=== PATIENT | male | born 1945 | race Caucasian/White ===

== ENCOUNTER 2019-03-27 11:42 | Outpatient (CLI) | payer MEDICARE ==
--- NOTE | 2019-03-27 12:13 | RAD ---
FIVE VIEWS CERVICAL SPINE: HISTORY: Cervical spondylosis. Several years of neck pain. FINDINGS: On the open-mouth projection, lateral masses of C1 and C2 articulate appropriately. The tip of the od ontoid process is obscured In the AP projection, multilevel facet arthropathy. There is extensive atherosclerosis in both cervic al carotid arteries. There is no prevertebral soft tissue swelling. Predental space is normal. The neutral position, there is 2.5 mm of anterolisthesis of C3 upon C4. Upon flexion there is 3.6 mm of anterolisthesis of C3 upon C4. Upon extension there is 2.7 mm of anterolisthesis of C3 upon C4. Mild loss of disc space height and osteophyte formation at C4-C5 and C6-C7. Moderate degenerative dis c disease with loss of disc space height and osteophyte formation at C5-C6. IMPRESSION: Multilevel degenerative changes of the cervical spine. Barring any contraindications, further evaluat ion with cervical spine MRI. Transcribed Date/Time: 03/27/2019 1:04 PM
--- NOTE | 2019-03-27 12:18 | RAD ---
FOUR VIEWS LUMBAR SPINE: HISTORY: Lifelong lower back pain. COMPARISON: None. FINDINGS: Five lumbar-type vertebrae. Mild leftward curvature of the lumbar spine centered at the L3 level. Mul tilevel degenerative disc disease with loss of disc space height and osteophyte formation at the L1-L2, L2-L3 and L3-L4 levels. Straightening of normal lumbar lordosis is noted in the neutral positi on. Spondylolisthesis: L3-L4: neutral position demonstrates 2.2 mm of retrolisthesis of L3 upon L4. Upon flexion there is 2.4 mm of retrolisthesis of L3 upon L4. Upon extension there is 1.8 mm of retrolisthesis of L3 upon L4. There is evidence of vacuum disc phenomenon at the L3-L4 level. Mild hypertrophic changes of the facets are noted at L2-L3, L3-L4, L4-L5. Visualized sacrum and bony pelvis are unremarkable. IMPRESSION: Degenerative changes of the lumbar spine and spondylolisthesis as above. Transcribed Date/Time: 03/27/2019 1:01 PM
== END 2019-03-27 11:43 | disposition home or self-care (01) ==
LOC: BICRAD 11:42
PROVIDERS: ATTEND Neurological Surgery
DX: M47.816 Spondylosis without myelopathy or radiculopathy, lumbar region (principal); M47.12 Other spondylosis with myelopathy, cervical region; M43.16 Spondylolisthesis, lumbar region
CPT/HCPCS: 72050; 72120

== ENCOUNTER 2019-04-10 12:25 | Outpatient (CLI) | payer MEDICARE ==
--- NOTE | 2019-04-10 14:44 | MRI ---
MRI cervical spine noncontrast: DATE: 04/10/2019 HISTORY: 73-year-old male with ICD-10: "M 47.12, cervical spondylosis with myelopathy" COMPARISON: None FINDINGS: Mild reversal of curvature. Vertebral body heights are maintained. Diffusely heterogeneous bone marro w signal consistent with senescent marrow changes. No bone marrow edema. Cervical spinal cord is normal in size and signal. C1-2: No central stenosis. C2-3: Disc space maintained. No high-grade central or high-grade neural foraminal stenosis. Ankylosis across bilateral facet joints. C3-4: Severe bilateral facet DJD causes mild grade 1 anterolisthesis of C3 on C4. Disc space maintain ed. Mild disc-osteophytic bar complex indents the ventral aspect of thecal sac. Mild central spinal canal stenosis. Small bilateral uncinate process osteophytes. Severe right neural foraminal stenosis. Moderate left neural foraminal stenosis. C4-5: Moderate disc space narrowing. Moderate right facet DJD. Moderate to severe left facet DJD. Min imal grade 1 anterolisthesis of C4 on C5. Moderate disc space narrowing. Shallow broad-based disc-osteophytic bar complex. Mild central spinal canal stenosis. Severe bilateral neural foraminal s tenosis. C5-6: Moderate disc space narrowing. Slight retrolisthesis of C5 on C6. Broad-based disc-osteophytic bar complex mildly indents the ventral surface of spinal cord. Superimposed right paracentral focal small disc herniation or focal disc-osteophyte complex further indents the right ventral surface of t he spinal cord. Mild ligamentum flavum thickening. Severe central spinal canal stenosis. Moderate size bilateral uncinate process osteophytes. Severe bilateral neural foraminal stenosis. Mild to mode rate bilateral facet DJD. C6-7: Moderate disc space narrowing. Slight retrolisthesis of C6 on C7. Broad-based disc-osteophytic bar complex abuts the ventral surface of spinal cord. Thickened ligamentum flavum abuts the dorsal surface of spinal cord superior to this level. C7-T1: Bilateral moderate to severe facet DJD. Bilateral moderate to severe neural foraminal stenosis . No high-grade central spinal canal stenosis. Minimal anterolisthesis of C7 on T1. Mild disc space narrowing. IMPRESSION: 1. High-grade Cervical spondylosis with moderate degenerative disc disease at several levels, and mul tilevel bilateral moderate and severe facet osteoarthrosis. 2. Multilevel severe bilateral neural foraminal stenosis. 3. High-grade central spinal canal stenosis at C5-6 and C6-7.
== END 2019-04-10 12:26 | disposition home or self-care (01) ==
LOC: BICMRI 12:25
PROVIDERS: ATTEND Neurological Surgery
DX: M47.12 Other spondylosis with myelopathy, cervical region (principal); M50.021 Cervical disc disorder at C4-C5 level with myelopathy; M50.03 Cervical disc disorder with myelopathy, cervicothoracic region; M48.02 Spinal stenosis, cervical region
CPT/HCPCS: 72141

== ENCOUNTER 2019-04-26 11:31 | Outpatient (CLI) | payer MEDICARE | END 2019-04-26 11:32 | disposition home or self-care (01) | LOC: ULT 11:31 | PROVIDERS: ATTEND Internal Medicine Cardiovascular Disease | DX: Z01.810 Encounter for preprocedural cardiovascular examination (principal); R06.09 Other forms of dyspnea | CPT/HCPCS: 93306 ==

== ENCOUNTER 2019-06-18 07:28 | Outpatient (CLI) | payer MEDICARE ==
--- NOTE | 2019-06-18 09:10 | CT ---
CT ANGIOGRMA NECK: DATE: 06/18/2019. COMPARISON: None. HISTORY: Evaluate for carotid arterial stenosis, dizziness. TECHNIQUE: Axial CT imaging at 2 mm intervals from the skull base through the lung apices with intravenous contr ast using CT angiogram protocol. Coronal and sagittal 3D reformatted imaging obtained. FINDINGS: There are prominent centrilobular and paraseptal emphysematous changes within the lung apices. The retroantral fat and the parapharyngeal fat appears clear bilaterally. The parotid glands and submandibular glands appear grossly unremarkable. The hyoid bone, thyroid car tilage, cricoid cartilage, level of glottis, and thyroid gland appear grossly unremarkable. No lymphadenopathy is evident within the neck. The origin of the innominate artery, left common carotid artery, left subclavian artery, right subcla vian artery, and right common carotid artery demonstrate no hemodynamically significant stenosis on t he basis of NASCET criteria. There is atherosclerotic calcification at the origin of bilateral subcl trell arteries. The proximal aspect of bilateral common carotid arteries demonstrates tortuosity. There is prominent partially calcified atherosclerotic plaque involving the proximal left internal ca rotid artery, involving the proximal 2.7 cm of the left ICA. There is associated stenosis of the pro ximal left ICA, with the arterial lumen narrowed to 2-3 mm in AP dimension. On the basis of NASCET c riteria, the degree of stenosis involving the proximal left internal carotid artery measures in the 8 0% range. On the basis of NASCET criteria, there is no hemodynamically significant stenosis involving the right common carotid artery. On the basis of partially calcified atherosclerotic plaque, there is stenosi s at the origin of the right internal carotid artery which is estimated in the 60% range. The left vertebral artery is patent and dominant. The right vertebral artery is diminutive and appears to end in PICA. Review of the osseous structures demonstrates prominent cervical spine degenerative change. There is anterolisthesis at C3-4 measuring 4 mm. There is multilevel disk space narrowing with degenerative end plate change within the mid and lower cervical spine, most prominent at C5-6, C6-7, and C7-T1. P rominent multilevel bilateral facet and uncovertebral osteophyte formation noted. No worrisome lytic or blastic bone lesion. IMPRESSION: Hemodynamically significant stenosis is noted at the origin of bilateral internal carotid arteries, l eft greater than right as detailed above. Numerous additional incidental findings. POS: ANGELA
[2019-06-18] MEDS ORDERED: Iopamidol 370 76% 100 ML VIAL ONE (10:40)
== END 2019-06-18 07:29 | disposition home or self-care (01) ==
LOC: BICCT 07:28
PROVIDERS: ATTEND Physician Assistant
DX: I65.23 Occlusion and stenosis of bilateral carotid arteries (principal)
CPT/HCPCS: 36415; 70498; 80053; 80061; 82565; 85025

== ENCOUNTER 2019-07-08 05:43 | Outpatient (CLI) | payer MEDICARE, OTHER ==
[2019-07-08 11:07] LABS: Hemoglobin 14.5 g/dL (14.0-18.0); Mean Corpuscular Hemoglobin 30.1 pg (27.0-31.0); Mean Corpuscular Volume 91.2 fL (78.0-98.0); Mean Platelet Volume 7.7 fL (7.4-10.4); Platelet Count 211 thou/uL (130-400); RBC Distribution Width 12.9 % (11.5-14.5); Red Blood Cell (RBC) Count 4.81 mill/uL (4.70-6.10); White Blood Cell (WBC) Count 9.6 thou/uL (4.8-10.8)
[2019-07-08 11:27] LABS: Anion Gap 12 mmol/L (10-20); BUN (Urea Nitrogen) 16 mg/dL (8.4-25.7); Calc. Creatinine Clearance 0 mL/min (70-130); Calcium 9.5 mg/dL (7.8-10.44); Carbon Dioxide 26 mmol/L (23-31); Chloride 107 mmol/L (98-107); Estimated GFR-MDRD 75; Glucose 119 mg/dL (83-110); Potassium 4.4 mmol/L (3.5-5.1); Sodium 141 mmol/L (136-145)
== END 2019-07-08 05:44 | disposition home or self-care (01) ==
LOC: LABBT 05:43
PROVIDERS: ATTEND Thoracic Surgery (Cardiothoracic Vascular Surgery)
DX: Z01.812 Encounter for preprocedural laboratory examination (principal); I65.29 Occlusion and stenosis of unspecified carotid artery
CPT/HCPCS: 80048; 85027

== ENCOUNTER 2019-07-08 09:30 | Inpatient (IN) | payer MEDICARE ==
[2019-07-09] MEDS ORDERED: Midazolam HCl 2 mg/2 ml Vial ONE (07:57)
[2019-07-09] MEDS ORDERED: Heparin 5,000 UNITS/ML VIAL ONE (08:15)
[2019-07-09] MEDS ORDERED: Protamine Sulfate 50 MG/5 ML VIAL ONE (08:15)
[2019-07-09] MEDS ORDERED: Fentanyl 100 MCG/2 ML VIAL ONE (08:26)
[2019-07-09] MEDS ORDERED: Bupivacaine PF 0.5% 30 ML VIAL ONE (09:03)
[2019-07-09] MEDS ORDERED: Lidocaine 1% w/Epinephrine 1:100K 20 ML VIAL ONE (09:03)
[2019-07-09] MEDS ORDERED: Rocuronium Bromide 10 MG/ML (10ML VIAL) ONE (09:59)
[2019-07-09] MEDS ORDERED: Glycopyrrolate 0.2 MG/ML 5 ML SYRINGE ONE (09:59)
[2019-07-09] MEDS ORDERED: PROPOFOL 200 MG/20 ML VIAL ONE (09:59)
--- NOTE | 2019-07-09 10:44 | OP ---
DATE OF PROCEDURE: 07/09/2019 PREOPERATIVE DIAGNOSIS: Asymptomatic left carotid stenosis. POSTOPERATIVE DIAGNOSIS: Asymptomatic left carotid stenosis. PROCEDURE PERFORMED: Left carotid endarterectomy. ANESTHESIA: General endotracheal. ANESTHESIOLOGIST: Varinedr Pearson MD ESTIMATED BLOOD LOSS: Minimal. DRAINS: None. SPECIMENS: None. DESCRIPTION OF PROCEDURE: After consent was obtained, the patient was brought to the operating room, placed in supine position on the operating table. Appropriate central line and monitors were placed and general endotracheal anesthesia was induced. Head was rotated to the right. Joints were appropriately supported and neck was then prepped and draped in usual sterile fashion. A skin incision was made along the anterior border of the sternocleidomastoid. Platysma was incised with electrocautery. Sternocleidomastoid was mobilized posteriorly. The carotid sheath was entered. A large facial vein branch was divided between ties and clips. Common internal and external carotid arteries were carefully exposed. The internal carotid artery plaque extended above where the hypoglossal nerve crossed. Hypoglossal nerve was then mobilized posteriorly to allow for access to the internal carotid artery. Vagus nerve was noted and protected. The patient was systemically heparinized. After 3 minutes, internal, common, and external carotid arteries were clamped serially. Incision was made on the common carotid artery extended through the bulb distal to the plaque. Endarterectomy was then performed removing a large bulky plaque from the internal carotid artery. A 12-Danish Pender shunt was then placed and antegrade flow re-established. Medial fibers were debrided. The internal carotid artery was approximately 1 cm in diameter. Therefore, patch angioplasty was not performed. Carotid incision was reapproximated with a running 6-0 Prolene suture. Prior to completion of suture line, shunt was clamped and removed. Arteries were all back bled and flushed with heparinized saline. After completion of the suture line, the carotid itself was de-aired. The suture line was tied. Antegrade flow was re-established up the external carotid artery. 10 seconds later antegrade flow was re-established up the internal carotid artery. 50 mg of protamine was administered. Hemostasis was ensured. Wounds were copiously irrigated and closed in layers and Dermabond applied to skin. A dena-incisional block was performed with 0.5% Marcaine mixed with 1% lidocaine with epinephrine. The patient was awakened and neurologically intact at completion. Needle, sponge, and instrument counts were all reported as correct at the end of the procedure. The patient was transported to the recovery area in stable condition. Job ID: [id number]
[2019-07-09] MEDS ORDERED: Promethazine HCl 25 MG/ML VIAL IM PRN (11:25)
[2019-07-09] MEDS ORDERED: hydrALAZINE 20 MG/ML VIAL SLOW IVP PRN (11:25)
[2019-07-09] MEDS ORDERED: traMADol HCl 50 MG TAB PO PRN (11:25)
[2019-07-09] MEDS ORDERED: Fentanyl 100 MCG/2 ML VIAL SLOW IVP PRN (11:25)
[2019-07-09] MEDS ORDERED: Phenylephrine 10 MG/NS 250 ML 250 ML IVPB PRN (11:25)
[2019-07-09] MEDS ORDERED: Nitroglycerin 50 MG/250 ML BOT 250 ML IVPB PRN (11:25)
[2019-07-09] MEDS ORDERED: Ondansetron PF 4 MG/2 ML Vial IVP PRN (11:25)
[2019-07-09 11:48] VITALS: BMI 27.0
[2019-07-09] MEDS: CEFAZOLIN 2 GM in Premix Bag 1 BAG IVPB SCH ×2 (15:58→23:46)
[2019-07-09] MEDS: Sodium Chloride 0.9% 1,000 ML IV SCH (20:55)
[2019-07-09] MEDS: Fluticasone Propionate Nasal Spray 16 gm Bottle NASAL SCH (20:59)
[2019-07-09] MEDS: Acyclovir 200 mg Capsule PO SCH (20:59)
[2019-07-09] MEDS ORDERED: Ezetimibe 10 MG TAB PO SCH (21:00)
[2019-07-09] MEDS ORDERED: Montelukast Sodium 10 mg Tablet PO SCH (21:00)
[2019-07-09] MEDS ORDERED: Atorvastatin Calcium 40 MG TAB PO SCH (21:00)
[2019-07-10 00:13] VITALS: BP 143/88
[2019-07-10] MEDS: Sodium Chloride 0.9% 1,000 ML IV SCH (05:24)
--- NOTE | 2019-07-10 06:23 | DIS ---
DATE OF ADMISSION: 07/09/2019 DATE OF DISCHARGE: 07/10/2019 DIAGNOSIS: Asymptomatic bilateral carotid stenosis. PROCEDURE: Left carotid endarterectomy. DESCRIPTION OF HOSPITAL STAY: Mr. Wright was admitted for elective carotid endarterectomy. He has done well and being discharged to home in good condition. DISCHARGE MEDICATIONS: Unchanged. He is to resume his Xarelto tomorrow morning. FOLLOWUP: Follow up with me in 2 weeks. Job ID: [id number]
[2019-07-10] MEDS: CEFAZOLIN 2 GM in Premix Bag 1 BAG IVPB SCH (07:25)
[2019-07-10] MEDS: Fluticasone Propionate Nasal Spray 16 gm Bottle NASAL SCH (07:27)
[2019-07-10] MEDS: Acyclovir 200 mg Capsule PO SCH (07:28)
[2019-07-10] MEDS ORDERED: Furosemide 40 MG TAB PO SCH (09:00)
[2019-07-10] MEDS ORDERED: Acetaminophen 500 MG TAB PO PRN (09:00)
[2019-07-10] MEDS ORDERED: Aspirin 81 mg Enteric Coated Tablet PO SCH (09:00)
[2019-07-10 09:23] VITALS: TEMP 98.4
== END 2019-07-10 09:10 | disposition home or self-care (01) | DRG 39 ==
LOC: SURG A 07-09 06:24 → CCU 07-09 10:30
PROVIDERS: ADMIT Thoracic Surgery (Cardiothoracic Vascular Surgery); ATTEND Thoracic Surgery (Cardiothoracic Vascular Surgery)
PROC: 03CL0ZZ Extirpation of Matter from Left Internal Carotid Artery, Open Approach (ICD-10-PCS; principal; 2019-07-09)
DX: I65.23 Occlusion and stenosis of bilateral carotid arteries (principal); I10 Essential (primary) hypertension; E78.5 Hyperlipidemia, unspecified; G89.29 Other chronic pain; I25.10 Atherosclerotic heart disease of native coronary artery without angina pectoris; J30.2 Other seasonal allergic rhinitis; M19.90 Unspecified osteoarthritis, unspecified site; Z79.01 Long term (current) use of anticoagulants; Z90.49 Acquired absence of other specified parts of digestive tract; Z98.42 Cataract extraction status, left eye; Z98.41 Cataract extraction status, right eye; Z87.891 Personal history of nicotine dependence; Z87.01 Personal history of pneumonia (recurrent)
CPT/HCPCS: 80048; 85027; 94640; J0360; J0690; J1642; J1644; J2250; J2704; J2720; J3010; J7620; S0020

== ENCOUNTER 2019-07-10 13:46 | Emergency (ER) | payer MEDICARE ==
[2019-07-10 14:20] LABS: Bilirubin Negative (Negative); Blood, Urine Negative (Negative); Clarity Clear (Clear); Glucose, Urine (Dipstick) Normal (Negative); Leukocyte Negative Leu/uL (Negative); Nitrite Negative (Negative); Protein, Urine (Dipstick) Negative (Neg-Trace); Urobilinogen Normal mg/dL (Less than 2)
== END 2019-07-10 16:14 | disposition home or self-care (01) ==
LOC: ERS 13:46
DX: R33.9 Retention of urine, unspecified (principal); R30.0 Dysuria; R39.15 Urgency of urination; R35.0 Frequency of micturition; I49.9 Cardiac arrhythmia, unspecified; I48.91 Unspecified atrial fibrillation; Z87.891 Personal history of nicotine dependence
CPT/HCPCS: 51702; 81003; 87086

== ENCOUNTER 2019-08-06 10:44 | Outpatient (CLI) | payer MEDICARE, OTHER ==
[2019-08-06 13:58] LABS: Hemoglobin 14.6 g/dL (14.0-18.0); Mean Corpuscular HGB CONC 33.7 g/dL (32.0-36.0); Mean Corpuscular Volume 89.1 fL (78.0-98.0); Mean Platelet Volume 7.8 fL (7.4-10.4); Platelet Count 184 thou/uL (130-400); RBC Distribution Width 12.1 % (11.5-14.5); Red Blood Cell (RBC) Count 4.85 mill/uL (4.70-6.10); White Blood Cell (WBC) Count 7.1 thou/uL (4.8-10.8)
[2019-08-06 14:15] LABS: Anion Gap 13 mmol/L (10-20); BUN (Urea Nitrogen) 20 mg/dL (8.4-25.7); Calc. Creatinine Clearance 0 mL/min (70-130); Carbon Dioxide 28 mmol/L (23-31); Chloride 103 mmol/L (98-107); Estimated GFR-MDRD 71; Sodium 140 mmol/L (136-145)
[2019-08-06 14:16] LABS: Calcium 9.2 mg/dL (7.8-10.44); Glucose 103 mg/dL (83-110)
[2019-08-06 17:47] LABS: SARS-CoV-2 MS2 Positive; SARS-CoV-2 N Gene Negative; SARS-CoV-2 S Gene Negative; SARS-CoV-2 orf1ab Negative
== END 2019-08-06 10:45 | disposition home or self-care (01) ==
LOC: LABBT 10:44
PROVIDERS: ATTEND Thoracic Surgery (Cardiothoracic Vascular Surgery)
DX: Z01.812 Encounter for preprocedural laboratory examination (principal); Z11.59 Encounter for screening for other viral diseases; I65.21 Occlusion and stenosis of right carotid artery
CPT/HCPCS: 80048; 85027; U0003; 87635

== ENCOUNTER 2019-08-06 13:00 | Inpatient (IN) | payer MEDICARE, OTHER ==
[2019-08-08] MEDS ORDERED: Heparin 5,000 UNITS/ML VIAL ONE (11:00)
[2019-08-08] MEDS ORDERED: Protamine Sulfate 50 MG/5 ML VIAL ONE ×2 (11:00→14:01)
[2019-08-08] MEDS ORDERED: Fentanyl 100 MCG/2 ML VIAL ONE (11:57)
[2019-08-08] MEDS ORDERED: Midazolam HCl 2 mg/2 ml Vial ONE (11:57)
[2019-08-08] MEDS ORDERED: SUGAMMADEX SODIUM 200 MG/2 ML VIAL ONE (13:13)
[2019-08-08] MEDS ORDERED: PHENYLEPHRINE-NS 100 MCG/ML 10 ML SYRINGE ONE ×2 (13:47→14:39)
[2019-08-08] MEDS ORDERED: EPINEPHrine 1 MG/ML AMP ONE (14:10)
[2019-08-08] MEDS ORDERED: Bupivacaine PF 0.5% 30 ML VIAL ONE (14:10)
[2019-08-08] MEDS ORDERED: Glycopyrrolate 0.2 MG/ML 5 ML SYRINGE ONE (14:39)
[2019-08-08] MEDS ORDERED: Lidocaine 1% PF 5 ML VIAL ONE ×2 (14:39)
[2019-08-08] MEDS ORDERED: PROPOFOL 200 MG/20 ML VIAL ONE (14:39)
[2019-08-08] MEDS ORDERED: Vecuronium 10 MG VIAL ONE (14:39)
[2019-08-08] MEDS ORDERED: EPHEDRINE 25 MG/5 ML SYRINGE ONE (14:39)
[2019-08-08] MEDS ORDERED: Ondansetron HCl/PF 4 MG/2 ML Vial IVP PRN (14:42)
[2019-08-08] MEDS ORDERED: Promethazine HCl 25 MG/ML VIAL IM PRN (16:15)
[2019-08-08] MEDS ORDERED: Nitroglycerin 50 MG/250 ML BOT 250 ML IVPB PRN (16:15)
[2019-08-08] MEDS ORDERED: Ondansetron PF 4 MG/2 ML Vial IVP PRN (16:15)
[2019-08-08] MEDS ORDERED: Acetaminophen 500 MG TAB PO PRN (16:15)
[2019-08-08] MEDS ORDERED: hydrALAZINE 20 MG/ML VIAL SLOW IVP PRN (16:15)
[2019-08-08] MEDS ORDERED: Phenylephrine 10 MG/NS 250 ML 250 ML IVPB PRN (16:15)
[2019-08-08] MEDS ORDERED: Sodium Chloride 0.9% 1,000 ML IV SCH (16:15)
[2019-08-08 16:21] VITALS: BMI 27.1
[2019-08-08] MEDS ORDERED: Rivaroxaban 10 MG TAB PO SCH (17:00)
[2019-08-08] MEDS: CEFAZOLIN 2 GM in Premix Bag 1 BAG IVPB SCH (17:26)
[2019-08-08] MEDS: Acetaminophen 325 MG TAB PO PRN (18:33)
--- NOTE | 2019-08-08 19:54 | OP ---
DATE OF PROCEDURE: 08/08/2019 PREOPERATIVE DIAGNOSIS: Asymptomatic right carotid stenosis. POSTOPERATIVE DIAGNOSIS: Asymptomatic right carotid stenosis. PROCEDURES PERFORMED: 1. Transcarotid artery revascularization right carotid stenting. 2. Ultrasound-guided left femoral venous access. ANESTHESIA: General endotracheal. ANESTHESIOLOGIST: Bonny Kang MD ESTIMATED BLOOD LOSS: Less than 50. TOTAL CONTRAST: 25 mL. TOTAL FLUORO TIME: 5 minutes 4 seconds. TOTAL REVERSAL OF FLOW TIME: 14 minutes. DESCRIPTION OF PROCEDURE: After consent was obtained, the patient was brought to the operating room and placed in supine position on the operating table. Appropriate central line was placed. General endotracheal anesthesia was induced. Right neck and left groin were prepped and draped in usual sterile fashion. Using ultrasound guidance, the left femoral vein was accessed and the 8-Gu[place]ian TCAR femoral venous sheath was placed. A skin incision was made one fingerbreadth above the clavicle between the heads of the sternocleidomastoid. Sternocleidomastoid heads were split. The omohyoid was retracted superiorly. The common carotid artery was dissected free and controlled with an umbilical tape proximally. The patient was given 7500 units of heparin. A 5-0 Prolene pursestring suture was placed in the common carotid artery. Access to the carotid artery was obtained with micropuncture needle and wire. A micropuncture sheath was passed and hand-injected arteriogram performed. The carotid bifurcation was laid out with an MATA 20 angulation. After an ACT of greater than 250 was obtained, the micropuncture sheath was exchanged for the TCAR sheath. This was controlled at the level of the skin with a silk suture. The TCAR sheath and femoral venous sheaths were then connected with reversal of flow confirmed. The 0.014 wire and a 5 x 2 angioplasty balloon were then passed into the internal carotid artery. Balloon was inflated to 8 mmHg in two separate locations. Followup angiogram showed good result. The TCAR stent was a 9 x 4 stent that was then passed over the wire into the internal carotid artery just distal to the balloon angioplasty site. The stent was deployed and posted with a 5 x 2 balloon. Followup angiogram showed a good result with about 20% residual stenosis. Flow reversal was continued for a minute after the stent was placed. Wire was removed under fluoroscopic guidance. Flow reversal was terminated. Protamine was administered. Arterial sheath was removed and its pursestring suture secured. The venous sheath was removed and manual pressure held for hemostasis. After adequate hemostasis had been obtained, wounds were closed in layers and Dermabond applied to skin. The patient was awakened and neurologically intact at completion. Needle, sponge, and instrument counts were all reported as correct. The patient was transferred to the recovery room in stable condition. Job ID: [id number]
[2019-08-08] MEDS ORDERED: Ezetimibe 10 MG TAB PO SCH (21:00)
[2019-08-08] MEDS ORDERED: Atorvastatin Calcium 40 MG TAB PO SCH (21:00)
[2019-08-08] MEDS ORDERED: Fluticasone Propionate Nasal Spray 16 gm Bottle NASAL SCH (21:00)
[2019-08-08] MEDS ORDERED: Acyclovir 200 mg Capsule PO SCH (21:00)
[2019-08-08] MEDS ORDERED: Montelukast Sodium 10 mg Tablet PO SCH (21:00)
[2019-08-09] MEDS: CEFAZOLIN 2 GM in Premix Bag 1 BAG IVPB SCH (01:48)
[2019-08-09] MEDS: Acetaminophen 325 MG TAB PO PRN (03:02)
[2019-08-09 04:35] LABS: Hemoglobin 11.7 g/dL (14.0-18.0); Platelet Count 162 thou/uL (130-400)
[2019-08-09 04:52] LABS: Calc. Creatinine Clearance 106 mL/min (70-130); Estimated GFR-MDRD Greater than 90
[2019-08-09 08:02] VITALS: TEMP 98
--- NOTE | 2019-08-09 08:23 | DIS ---
DATE OF ADMISSION: 08/08/2019 DATE OF DISCHARGE: 08/09/2019 DIAGNOSIS: Asymptomatic right carotid stenosis. PROCEDURE: Transcarotid artery revascularization (TCAR) carotid stenting of the right internal carotid artery. DISCHARGE MEDICATIONS: Unchanged from admission. DESCRIPTION OF HOSPITAL STAY: Mr. Wright was brought in for elective TCAR procedure. He has done well postoperatively. He had urinary retention that required Pretty catheter placement, which has happened him the last time he had general anesthesia. He had a Pretty placed and is being sent home with his Pretty. Discharge medications were unchanged. Job ID: [id number]
[2019-08-09] MEDS ORDERED: Furosemide 40 MG TAB PO SCH (09:00)
[2019-08-09] MEDS ORDERED: Clopidogrel Bisulfate 75 MG TAB PO SCH (09:00)
[2019-08-09] MEDS ORDERED: Aspirin 81 mg Enteric Coated Tablet PO SCH (09:00)
== END 2019-08-09 08:30 | disposition home or self-care (01) | DRG 36 ==
LOC: SURG A 08-08 08:53 → EDSTATUS 08-08 13:00 → CCU 08-08 15:30
PROVIDERS: ADMIT Thoracic Surgery (Cardiothoracic Vascular Surgery); ATTEND Thoracic Surgery (Cardiothoracic Vascular Surgery)
PROC: 037K0DZ Dilation of Right Internal Carotid Artery with Intraluminal Device, Open Approach (ICD-10-PCS; principal; 2019-08-08)
PROC: 0T9B70Z Drainage of Bladder with Drainage Device, Via Natural or Artificial Opening (ICD-10-PCS; 2019-08-09)
DX: I65.21 Occlusion and stenosis of right carotid artery (principal); E78.2 Mixed hyperlipidemia; I48.0 Paroxysmal atrial fibrillation; I10 Essential (primary) hypertension; R33.9 Retention of urine, unspecified; Z11.59 Encounter for screening for other viral diseases
CPT/HCPCS: 76000; 80048; 82565; 85014; 85018; 85027; 85049; 87635; 94640; C1769; J0171; J0360; J0690; J1642; J1644; J2001; J2250; J2405; J2704; J2720; J3010; J7620; S0020; U0003

== ENCOUNTER 2019-09-17 05:55 | Outpatient (CLI) | payer MEDICARE, OTHER ==
[2019-09-17 14:08] LABS: Hemoglobin 13.3 g/dL (14.0-18.0); Mean Corpuscular HGB CONC 32.5 g/dL (32.0-36.0); Mean Corpuscular Hemoglobin 29.5 pg (27.0-31.0); Mean Corpuscular Volume 90.7 fL (78.0-98.0); Platelet Count 201 thou/uL (130-400); Red Blood Cell (RBC) Count 4.52 mill/uL (4.70-6.10); White Blood Cell (WBC) Count 5.4 thou/uL (4.8-10.8)
[2019-09-17 14:17] LABS: Anion Gap 14 mmol/L (10-20); BUN (Urea Nitrogen) 16 mg/dL (8.4-25.7); Calc. Creatinine Clearance 0 mL/min (70-130); Calcium 9.4 mg/dL (7.8-10.44); Carbon Dioxide 25 mmol/L (23-31); Chloride 105 mmol/L (98-107); Estimated GFR-MDRD 67; Glucose 106 mg/dL (83-110); Potassium 4.3 mmol/L (3.5-5.1); Sodium 140 mmol/L (136-145)
--- NOTE | 2019-09-17 15:56 | EKG ---
Test Reason : Blood Pressure : / mmHG Vent. Rate : 081 BPM Atrial Rate : 081 BPM P-R Int : 000 ms QRS Dur : 080 ms QT Int : 384 ms P-R-T Axes : 021 063 025 degrees QTc Int : 446 ms Sinus rhythm with Blocked Premature atrial complexes Otherwise normal ECG No previous ECGs available Confirmed by LEODAN HSU, DR. Frey ([id number]) on 09/17/2019 3:55:59 PM Referred By: LEONA Confirmed By:DR. Shante ALCOCER MD
[2019-09-18 12:43] LABS: SARS-CoV-2 MS2 Positive; SARS-CoV-2 N Gene Negative; SARS-CoV-2 S Gene Negative; SARS-CoV-2 orf1ab Negative
== END 2019-09-17 05:56 | disposition home or self-care (01) ==
LOC: LABBT 05:55
PROVIDERS: ATTEND Neurological Surgery
DX: Z01.818 Encounter for other preprocedural examination (principal); Z11.59 Encounter for screening for other viral diseases; M48.061 Spinal stenosis, lumbar region without neurogenic claudication; M41.26 Other idiopathic scoliosis, lumbar region
CPT/HCPCS: 80048; 85027; 93005; U0003; 87635; 93010

== ENCOUNTER 2019-09-20 05:21 | Inpatient (IN) | payer MEDICARE, OTHER ==
[2019-09-13 09:43] VITALS: BMI 25.8
--- NOTE | 2019-09-18 13:21 | HP ---
HISTORY OF PRESENT ILLNESS: Mr. Wright is a 73-year-old gentleman with lower back and leg pain. He has tried multiple spinal injections along with physical therapy and has not benefit with any relief, that has been permanent. He cannot stand or walk for a very long. He has leaned forward into the left when he does walk or stand for any length of time. PAST MEDICAL HISTORY: 1. Hypertension. 2. Hypercholesterolemia. 3. GERD. 4. Asthma. 5. Cataracts. 6. Headaches. 7. Knee pain. SURGICAL HISTORY: 1. Tonsillectomy. 2. Hernia repair. 3. Knee replacement. 4. Vasectomy. 5. Sinus surgery. 6. Hemorrhoidectomy. HOSPITALIZATIONS: See above surgeries. FAMILY HISTORY: Father , diagnosed with diabetes. Mother , cancer. SOCIAL HISTORY: He does not use nicotine products. He does not drink alcohol or illicit drugs. He is . MEDICATIONS: 1. Xarelto. 2. Atorvastatin. 3. Diltiazem. 4. Ezetimibe. 5. Tamsulosin. 6. Mucinex. 7. Acyclovir. 8. Furosemide. 9. Fluticasone. ALLERGIES: NO KNOWN DRUG ALLERGIES. REVIEW OF SYSTEMS: CONSTITUTIONAL: Denies fever or chills. EARS, NOSE, AND THROAT: Denies change in vision or hearing. CARDIAC: Denies chest pain, shortness of breath, or diaphoresis. PULMONARY: Denies shortness of breath, cough, or hemoptysis. GASTROINTESTINAL: Denies abdominal pain, nausea, vomiting, diarrhea, or change in stool formation and consistency. : Denies trouble with urination, frequency of urination, or bloody urine. SKIN: Denies skin rash, bruising, bleeding, or skin masses. MUSCULOSKELETAL: As per history of present illness. NEUROLOGIC: As per history of present illness. PSYCHOLOGIC: Denies anxiety, depression, or behavior changes. PHYSICAL EXAMINATION: VITAL SIGNS: Weight 200 pounds and height 69 inches. HEENT: Pupils are equal. Extraocular movements are intact. NECK: Soft and supple. No masses are noted. Range of motion is intact and nonpainful. NEUROLOGIC: Awake, alert, and oriented x3. Memory, attention, fund of knowledge normal. Cranial nerves grossly intact. Gait and station: Leans forward in the left. Motor exam: Some right hip flexor and quad weakness. Sensory exam: L3 greater than L2 radicular numbness. IMAGING STUDIES: MRI; concavity on the right at L2, L3, L4 from scoliosis. L2-L3 and L3-L4 foraminal stenosis. X-ray, flexion and extension slightly unstable. ASSESSMENT: 1. Lumbar radiculopathy. 2. Lumbar foraminal stenosis. PLAN: 1. Laminectomy at L2-L3 and L3-4 with TLIF. 2. Preoperative testing. CBC, PT/PTT, COVID-19. 3. Anesthesia clearance. 4. Primary care clearance. 5. Stop Xarelto one week before surgery. Restart 2 weeks after surgery. INFORMED CONSENT: We discussed the indications, risks, benefits, alternatives, and expected results from surgery. The risks discussed included, but were not limited to, bleeding, infection, CSF leak, nerve damage, weakness, incontinence, cauda equina injury, arachnoiditis, paralysis, ventilator dependency, wheelchair dependency, loss of vision, hardware misplacement, cardiopulmonary complications of anesthesia, or . Long-term complications discussed included, but were not limited to, degeneration of surrounding disk and future surgery. He understands the risks and is willing to proceed. Job ID: [id number]
[2019-09-20] MEDS ORDERED: EPINEPHrine 1 MG/ML AMP ONE (06:11)
[2019-09-20] MEDS ORDERED: Bupivacaine PF 0.5% 30 ML VIAL ONE (06:11)
[2019-09-20] MEDS ORDERED: Thrombin 5000 UNITS/5 ML VIAL ONE ×2 (06:11→11:35)
[2019-09-20] MEDS ORDERED: Fentanyl 250 MCG/5 ML VIAL ONE (06:31)
[2019-09-20] MEDS ORDERED: PHENYLEPHRINE-NS 100 MCG/ML 10 ML SYRINGE ONE (12:33)
[2019-09-20] MEDS ORDERED: Ondansetron PF 4 MG/2 ML Vial ONE (12:33)
[2019-09-20] MEDS ORDERED: Glycopyrrolate 0.2 MG/ML 5 ML SYRINGE ONE (12:33)
[2019-09-20] MEDS ORDERED: PROPOFOL 200 MG/20 ML VIAL ONE (12:33)
[2019-09-20] MEDS ORDERED: EPHEDRINE 25 MG/5 ML SYRINGE ONE (12:33)
[2019-09-20] MEDS ORDERED: Rocuronium Bromide 10 MG/ML (10ML VIAL) ONE (12:33)
[2019-09-20] MEDS ORDERED: Dexamethasone 20 MG/5 ML VIAL ONE (12:33)
[2019-09-20] MEDS ORDERED: Lidocaine 1% PF 5 ML VIAL ONE (12:33)
[2019-09-20] MEDS ORDERED: Scopolamine 1.5 mg/72 hour Patch TD PRN (12:52)
[2019-09-20] MEDS ORDERED: Ondansetron PF 4 MG/2 ML Vial IVP PRN (12:52)
[2019-09-20] MEDS ORDERED: Mag-Al 1200 mg/1200 mg/30 ML UDCUP PO PRN (12:52)
[2019-09-20] MEDS ORDERED: diphenhydrAMINE 50 MG/ML VIAL IVP PRN (12:52)
[2019-09-20] MEDS ORDERED: Tamsulosin HCl 0.4 MG CAP PO PRN (12:52)
[2019-09-20] MEDS ORDERED: Prochlorperazine 10 MG/2 ML VIAL IM PRN (12:52)
[2019-09-20] MEDS ORDERED: Acetaminophen 325 MG TAB PO PRN (12:52)
[2019-09-20] MEDS ORDERED: Milk Of Magnesia 30 ML UDCUP PO PRN (12:52)
[2019-09-20] MEDS ORDERED: Fentanyl 100 MCG/2 ML VIAL SLOW IVP PRN (13:02)
[2019-09-20] MEDS ORDERED: Promethazine HCl 25 MG/ML VIAL SLOW IVP PRN (13:09)
[2019-09-20] MEDS ORDERED: Ondansetron HCl/PF 4 MG/2 ML Vial IVP PRN (13:09)
[2019-09-20] MEDS ORDERED: Promethazine HCl 25 MG/ML VIAL IM PRN (13:09)
[2019-09-20] MEDS ORDERED: Fentanyl 100 MCG/2 ML VIAL ONE (13:19)
[2019-09-20] MEDS ORDERED: CEFAZOLIN 2 GM in Premix Bag 1 BAG IVPB SCH (14:00)
--- NOTE | 2019-09-20 15:14 | OP ---
DATE OF PROCEDURE: 09/20/2019 DENTAL SCHEDULER: Miguel Montiel PA-C PREOPERATIVE INDICATION: Treat pain and prevent neurological deterioration. PREOPERATIVE DIAGNOSIS: Lumbar scoliosis with nerve compression in the concavity at L2-L3 and L3-L4 with L2 and L3 radiculopathies on the right side. POSTOPERATIVE DIAGNOSIS: Lumbar scoliosis with nerve compression in the concavity at L2-L3 and L3-L4 with L2 and L3 radiculopathies on the right side. PROCEDURES PERFORMED: Decompressive laminectomy with medial facetectomy and foraminotomy L2-L3 and L3-L4, transforaminal lumbar interbody arthrodesis L2-L3 and L3-L4, pedicle screw emmie instrumentation L2-L3 and L3-L4, posterolateral arthrodesis L2-L3 and L3-L4, local morselized autograft and morselized allograft. PREOPERATIVE MEDICATIONS: Ancef 2 g IV. DRAIN NUMBER: One. DRAIN TYPE: 10-[place]zeri Golden. DESCRIPTION OF PROCEDURE: The patient was brought to the operating room. General endotracheal anesthesia was induced. The patient was positioned prone on the operative table with his chest and hips supported by the appropriate attachments of the Michi frame. A lateral fluoro radiograph was used to plan our incision. The lumbar skin was sterilely prepped and draped. We opened a midline incision with a 10 blade knife and controlled bleeding with bipolar and monopolar cautery. We used monopolar cautery to dissect through subcutaneous tissues to the thoracodorsal fascia. We incised the fascia in the midline and reflected the paraspinal muscles off the spinous process and lamina of L2, L3, and L4. A self-retaining retractor was placed. A lateral fluoro radiograph confirmed the levels upon which we were operating. We then carried our dissection over the facet joints to identify the transverse processes of L2, L3, and L4. We irrigated with bacitracin irrigation. Self-retaining retractors were opened a bit wider. Adson rongeur was used to remove the spinous process of L2, L3, and the top of L4. Kerrison rongeurs were used to fashion a laminectomy down the midline. We decompressed the right side especially. Here, we had to perform medial facetectomies and wide foraminotomies over the exiting L2 and L3 nerve roots. We turned our attention to arthrodesis. Using an Adson rongeur, we removed the entire facet joint at L2-L3 and L3-L4 on the right side. With the bony overgrowth of the joints out of the way, the foramina were more widely patent. We used this trajectory through the foramen to access the intervertebral space. We removed disk contents using curettes and rongeurs and measured the height of the interspace to 10 mm at both of the interspaces. This was done with a rectangular-shaped bone rasp. We irrigated with bacitracin irrigation. We then prepared the endplates for grafting with a bone rasp and brought in a PEEK graft measuring 10 mm in height for both of the interspaces. Our laminectomy bone was cleaned of soft tissue attachments morcellized and added to demineralized bone matrix as our fusion substrate, that substrate was packed in the center of the PEEK graft and the grafts were advanced into the interspaces under radiographic guidance to the appropriate depth. We turned our attention to pedicle screw instrumentation. Using bony anatomic landmarks, palpation of the medial portion of the pedicles, and a lateral fluoro radiograph as our guide, we chose entry points for pedicle screws at L2, L3, and L4. We drilled out our entry points and used a bone awl to advance through the pedicles into the vertebral bodies and then we tapped each trajectory with a threaded tap. When probing the trajectory with a ball probe, we found they were completely encased in bone. A 55-mm screws were placed in the pedicle screws at L2, L3, and L4 bilaterally. These were 6.5 mm in diameter. A 360-degree image set was generated with our isocentric C-arm confirming adequate positioning of our pedicle screw instrumentation. We irrigated with bacitracin irrigation. We decorticated the transverse processes from L2 through L4 bilaterally and left demineralized bone matrix and morselized autograft over the decorticated bone as our posterolateral fusion substrate. Rods were brought into the screw heads and we tightened caps over the rods. We used gentle compression to keep the interbody graft in place as we used a torque/counter-torque mechanism to ensure adequate tightness of the caps. We then tunneled the drain inferiorly through a separate stab incision. We used local anesthetic in the paraspinal muscles. We treated the wound with vancomycin powder and we closed in anatomical layers. This was a clean case, no contamination. Job ID: [id number]
[2019-09-20] MEDS ORDERED: Acetaminophen 500 MG TAB PO PRN (18:10)
[2019-09-20] MEDS ORDERED: Non-Formulary Item 1 EACH (Gabapentin [Gabapentin] 1 TAB) PO PRN (18:10)
[2019-09-20] MEDS: Montelukast Sodium 10 mg Tablet PO SCH (20:46)
[2019-09-20] MEDS: Ezetimibe 10 MG TAB PO SCH (20:46)
[2019-09-20] MEDS: Rosuvastatin 20 MG TAB PO SCH (20:46)
[2019-09-20] MEDS: Acyclovir 200 mg Capsule PO SCH (20:46)
[2019-09-20] MEDS: Tamsulosin HCl 0.4 MG CAP PO SCH (20:46)
[2019-09-20] MEDS: CEFAZOLIN 2 GM in Premix Bag 1 BAG IVPB SCH (20:47)
[2019-09-20] MEDS: Fluticasone Propionate Nasal Spray 16 gm Bottle NASAL SCH (20:47)
--- NOTE | 2019-09-20 23:45 | CON ---
DATE OF CONSULTATION: REASON FOR CONSULTATION: Medical management. HISTORY OF PRESENT ILLNESS: This is a 73-year-old male patient, who has a history of lower back and neck pain. He tried multiple spinal injections and physical therapy with no benefit. He cannot stand or walk for a very long time. He was admitted today to undergo translumbar laminectomy with interbody fusion. He did go through that surgery and he is currently doing well. Does not appear in distress, complain of slight pain around the incision site, we were called to help with his medical management. PAST MEDICAL HISTORY: 1. High blood pressure. 2. High cholesterol. 3. GERD. 4. Asthma. 5. Cataract. 6. Headaches. 7. Knee pain. 8. Atrial fibrillation. PAST SURGICAL HISTORY: 1. Tonsillectomy. 2. Hernia repair. 3. Knee replacement. 4. Vasectomy. 5. Sinus surgery. 6. Hemorrhoidectomy. 7. Post two carotid endarterectomy. FAMILY HISTORY: Father had diabetes. SOCIAL HISTORY: He does not smoke. Does not drink alcohol. ALLERGIES: NO NOTE OF ANY DRUG ALLERGY. REVIEW OF SYSTEMS: All systems reviewed except the above mentioned, found to be negative. PHYSICAL EXAMINATION: GENERAL: Awake, alert, and oriented, does not appear in distress. VITAL SIGNS: His blood pressure is 126/77, heart rate is 98, temperature is 97.8, and saturating 95% on room air. HEENT: Head is nontraumatic and normocephalic. Pupils are equal and reactive. Extraocular movements are intact. Nonicteric sclerae. Well injected conjunctivae. Oral mucosa normal. Nasal mucosa normal. NECK: Supple. No adenopathy. No murmur. Thyroid is not palpable. Trachea is midline. No supraclavicular lymphadenopathy. HEART: S1 and S2. Regular. No murmurs. No gallops. No friction rubs. No displacement of PMI. LUNGS: Clear to auscultation bilaterally. No wheezes. No rhonchi. No crackles. Bowel sounds are positive. Nontender abdomen. No hepatomegaly. EXTREMITIES: No lower extremity edema. No cyanosis. NEURO: Cranial nerves appeared to be intact. He is moving all his four extremities. LABORATORY DATA: Outpatient blood work shows sodium 140, bicarb 25, creatinine 1.08, and calcium 9.4. WBC 5.4, hemoglobin 13.3, and platelets of 201. EKG shows sinus rhythm, no ST-segment or T-wave changes. ASSESSMENT AND PLAN: This is a 73-year-old male patient, who is status post back surgery. We were asked to help with his medical management. He seems to be doing well and stable. He has been off his Xarelto and aspirin for the past week. Cardiac. The patient has history of high blood pressure and atrial fibrillation as well as high cholesterol. He is resumed on aspirin and at some point, he will go back on Xarelto when surgery deems that it is safe to do so until then, continue current medications. For deep venous thrombosis prophylaxis, will be on sequential compression devices. For pain control, he is on hydrocodone and fentanyl on as needed basis. Job ID: [id number]
[2019-09-21] MEDS: CEFAZOLIN 2 GM in Premix Bag 1 BAG IVPB SCH ×3 (03:21→21:04)
[2019-09-21 06:15] LABS: #Lymphocytes 1.3 thou/uL (1.20-3.40); #Monocytes 1.2 thou/uL (0.11-0.59); #Neutrophils 6.1 thou/uL (1.40-6.50); %Basophils 0.4 % (0.0-1.0); %Monocytes 13.9 % (0.0-10.0); %Neutrophils 70.7 % (42.0-75.0); Hemoglobin 10.1 g/dL (14.0-18.0); Mean Corpuscular HGB CONC 32.4 g/dL (32.0-36.0); Mean Corpuscular Hemoglobin 28.7 pg (27.0-31.0); Mean Corpuscular Volume 88.8 fL (78.0-98.0); Mean Platelet Volume 7.7 fL (7.4-10.4); Platelet Count 180 thou/uL (130-400); RBC Distribution Width 12.7 % (11.5-14.5); Red Blood Cell (RBC) Count 3.53 mill/uL (4.70-6.10); White Blood Cell (WBC) Count 8.6 thou/uL (4.8-10.8)
[2019-09-21] MEDS: HYDROcodone/Acetaminophen 7.5/325 mg Tablet PO PRN ×3 (06:17→17:34)
[2019-09-21 06:33] LABS: Anion Gap 10 mmol/L (10-20); BUN (Urea Nitrogen) 14 mg/dL (8.4-25.7); Calc. Creatinine Clearance 78 mL/min (70-130); Calcium 8.2 mg/dL (7.8-10.44); Carbon Dioxide 26 mmol/L (23-31); Chloride 107 mmol/L (98-107); Estimated GFR-MDRD 77; Glucose 123 mg/dL (83-110); Potassium 4.2 mmol/L (3.5-5.1); Sodium 139 mmol/L (136-145)
[2019-09-21] MEDS: Aspirin 81 mg Enteric Coated Tablet PO SCH ×2 (08:35→08:41)
[2019-09-21] MEDS: Acyclovir 200 mg Capsule PO SCH ×2 (08:36→21:05)
[2019-09-21] MEDS: Furosemide 40 MG TAB PO SCH (08:36)
[2019-09-21] MEDS: tiZANidine HCl 4 MG TAB PO PRN ×2 (09:24→21:04)
--- NOTE | 2019-09-21 11:48 | PRG ---
DATE OF SERVICE: 09/21/2019 Mr. Wright's neurologic strength is intact. He is postoperative day #1 following transforaminal lumbar interbody fusion. He states he is unsure if his leg pain is better as it was only present when he was mobilizing. He also asked me about the Pretty catheter, but then he has had a history of urinary retention after his carotid endarterectomies. Dr. Teixeira had already let him know that the patient would likely go home with a catheter and I would be in full support of this. He would likely benefit from inpatient rehab. We will leave the catheter in place. Job ID: [id number]
[2019-09-21] MEDS: Fluticasone Propionate Nasal Spray 16 gm Bottle NASAL SCH ×2 (11:57→21:10)
--- NOTE | 2019-09-21 20:03 | PDOC.HOSPP ---
- Subjective Encounter Date: 09/21/19 Encounter Time: 09:00 Subjective: Pt seen for followup re: hypertension. Feels better. - Objective Vital Signs & Weight: Vital Signs (12 hours) Temp Pulse Resp BP Pulse Ox 09/21/19 16:02 98.1 F 74 16 115/78 95 09/21/19 10:44 98.4 F 80 16 102/64 96 Weight Weight 180 lb I&O: 09/20/19 09/21/19 09/22/19 06:59 06:59 06:59 Intake Total 500 1600 Output Total 1800 875 Balance -1300 725 Result Diagrams: 09/21/19 05:43 09/21/19 05:43 Additional Labs: Labs and MARs reviewed by mn Hospitalist ROS - Review of Systems Cardiovascular: denies: chest pain, palpitations, orthopnea, paroxysmal noc. dyspnea, edema, light headedness Gastrointestinal: denies: nausea, vomiting, abdominal pain, diarrhea, constipation, melena, hematochezia - Medication Medications: Active Medications Generic Name Dose Route Start Last Admin Trade Name Freq PRN Reason Stop Dose Admin Hydrocodone Bitart/Acetaminophen 1 tab 09/20/19 12:52 09/21/19 17:34 [place] 7.5/325 PO 1 tab Q4H PRN Administration Mild Pain (1-3) Acyclovir 200 mg 09/20/19 21:00 09/21/19 08:36 Zovirax PO 09/27/19 21:01 200 mg BID GROVER Administration Diltiazem HCl 180 mg 09/20/19 21:00 09/20/19 20:46 Cardizem Cd PO 180 mg HS GROVER Administration Ezetimibe 10 mg 09/20/19 21:00 09/20/19 20:46 Zetia PO 10 mg HS GROVER Administration Fluticasone Propionate 0 gm 09/20/19 21:00 09/21/19 11:57 Flonase Nasal [place] NASAL 2 spr BID GROVER Administration Furosemide 40 mg 09/21/19 09:00 09/21/19 08:36 Lasix PO 40 mg DAILY GROVER Administration Cefazolin Sodium/Dextrose 2 gm 50 mls @ 100 mls/hr 09/20/19 20:00 09/21/19 11 :57 / Device IVPB 50 mls 0400,1200,2000 GROVER Administration Montelukast Sodium 10 mg 09/20/19 21:00 09/20/19 20:46 Singulair PO 10 mg HS GROVER Administration Pantoprazole Sodium 40 mg 09/21/19 09:00 09/21/19 08:41 Protonix PO Not Given DAILY GROVER Rosuvastatin Calcium 20 mg 09/20/19 21:00 09/20/19 20:46 Crestor PO 20 mg HS GROVER Administration Tamsulosin HCl 0.4 mg 09/20/19 21:00 09/20/19 20:46 Flomax PO 0.4 mg HS GROVER Administration Tizanidine HCl 4 mg 09/20/19 12:52 09/21/19 09:24 Zanaflex PO 4 mg Q6H PRN Administration Muscle Spasm - Exam General Appearance: NAD Eye: anicteric sclera ENT: normocephalic atraumatic, no oropharyngeal lesions Neck: supple, no thyromegaly, no lymphadenopathy Heart: RRR Respiratory: CTAB, no wheezes Gastrointestinal: soft, non-tender, non-distended, normal bowel sounds Extremities: no cyanosis Musculoskeletal: normal tone Psychiatric: normal affect, normal behavior Hosp A/P (1) Hypertension Code(s): I10 - ESSENTIAL (PRIMARY) HYPERTENSION Status: Chronic (2) PAF (paroxysmal atrial fibrillation) Code(s): I48.0 - PAROXYSMAL ATRIAL FIBRILLATION Status: Chronic (3) Dyslipidemia Code(s): E78.5 - HYPERLIPIDEMIA, UNSPECIFIED Status: Chronic (4) GERD (gastroesophageal reflux disease) Code(s): K21.9 - GASTRO-ESOPHAGEAL REFLUX DISEASE WITHOUT ESOPHAGITIS Status: Chronic (5) Asthma Code(s): J45.909 - UNSPECIFIED ASTHMA, UNCOMPLICATED Status: Chronic - Plan PT/OT, out of bed/ambulate HTN controlled. Continue PPI. Pt has miller catheter in place for urinary retention. Ambulate pt. [place] Crestor. Asthma stable.
[2019-09-21] MEDS: traMADol HCl 50 MG TAB PO PRN (21:04)
[2019-09-21] MEDS: Rosuvastatin 20 MG TAB PO SCH (21:04)
[2019-09-21] MEDS: Tamsulosin HCl 0.4 MG CAP PO SCH (21:05)
[2019-09-21] MEDS: Montelukast Sodium 10 mg Tablet PO SCH (21:05)
[2019-09-21] MEDS: Ezetimibe 10 MG TAB PO SCH (21:05)
[2019-09-22] MEDS: CEFAZOLIN 2 GM in Premix Bag 1 BAG IVPB SCH ×3 (06:08→20:04)
[2019-09-22] MEDS: tiZANidine HCl 4 MG TAB PO PRN (06:38)
[2019-09-22] MEDS: HYDROcodone/Acetaminophen 7.5/325 mg Tablet PO PRN ×3 (06:38→23:26)
[2019-09-22] MEDS: Morphine 2 MG/ML VIAL SLOW IVP PRN ×2 (09:35→15:13)
[2019-09-22] MEDS: Furosemide 40 MG TAB PO SCH (09:44)
[2019-09-22] MEDS: Acyclovir 200 mg Capsule PO SCH ×2 (09:44→20:03)
[2019-09-22] MEDS: Fluticasone Propionate Nasal Spray 16 gm Bottle NASAL SCH ×2 (09:44→20:27)
[2019-09-22] MEDS: traMADol HCl 50 MG TAB PO PRN ×2 (09:46→21:26)
[2019-09-22] MEDS ORDERED: Diazepam 5 MG TAB PO PRN (09:57)
[2019-09-22] MEDS ORDERED: Polyethylene Glycol 3350 17 GM Packet PO PRN (09:59)
[2019-09-22] MEDS ORDERED: Polyethylene Glycol 3350 17 GM Packet PO SCH (10:15)
--- NOTE | 2019-09-22 10:51 | PRG ---
DATE OF SERVICE: 09/22/2019 Mr. Wright is postoperative day 2 following a transforaminal lumbar interbody fusion. He states his leg pain has resolved. He has increased muscle pain, however, in his low back this morning with any rotation, and this has hampered his progress mobilization luke this morning. We will add Valium to his muscle relaxant regimen to try and increase his comfort level and mobilization potential. He will need inpatient rehab, and his Pretty catheter remains indwelling. Job ID: [id number]
[2019-09-22] MEDS: Rosuvastatin 20 MG TAB PO SCH (19:59)
[2019-09-22] MEDS: Tamsulosin HCl 0.4 MG CAP PO SCH (20:00)
[2019-09-22] MEDS: Ezetimibe 10 MG TAB PO SCH (20:00)
[2019-09-22] MEDS: Montelukast Sodium 10 mg Tablet PO SCH (20:03)
--- NOTE | 2019-09-22 20:41 | PDOC.HOSPP ---
- Subjective Encounter Date: 09/22/19 Encounter Time: 10:30 Subjective: pt seen for followup for constipation. c:o on and off pain atvsurgical site - Objective Vital Signs & Weight: Vital Signs (12 hours) Temp Pulse Resp BP Pulse Ox 09/22/19 15:40 98 F 80 18 110/70 95 09/22/19 11:47 97.9 F 82 18 103/68 92 L Weight Weight 180 lb I&O: 09/21/19 09/22/19 09/23/19 06:59 06:59 06:59 Intake Total 500 1600 1190 Output Total 1800 2455 2140 Balance -1617 -944 -408 Result Diagrams: 09/21/19 05:43 09/21/19 05:43 Additional Labs: labs and MARs reviewed by tx Hospitalist ROS - Review of Systems Cardiovascular: denies: chest pain, palpitations, orthopnea, paroxysmal noc. dyspnea, edema, light headedness Gastrointestinal: reports: constipation Genitourinary: reports: retention Musculoskeletal: reports: neck pain - Medication Medications: Active Medications Generic Name Dose Route Start Last Admin Trade Name Freq PRN Reason Stop Dose Admin Hydrocodone Bitart/Acetaminophen 1 tab 09/20/19 12:52 09/22/19 18:54 [place] 7.5/325 PO 1 tab Q4H PRN Administration Mild Pain (1-3) Acyclovir 200 mg 09/20/19 21:00 09/22/19 20:03 Zovirax PO 09/27/19 21:01 200 mg BID [place] Administration Diazepam 5 mg 09/22/19 09:57 09/22/19 11:08 Valium PO 5 mg TIDPRN PRN Administration muscle spasm Diltiazem HCl 180 mg 09/20/19 21:00 09/21/19 21:05 Cardizem Cd PO 180 mg HS GROVER Administration Ezetimibe 10 mg 09/20/19 21:00 09/22/19 20:00 Zetia PO 10 mg HS GROVER Administration Fluticasone Propionate 0 gm 09/20/19 21:00 09/22/19 20:27 Flonase Nasal [place] NASAL 2 spr BID GROVER Administration Furosemide 40 mg 09/21/19 09:00 09/22/19 09:44 Lasix PO 40 mg DAILY GR[place] Administration Cefazolin Sodium/Dextrose 2 gm 50 mls @ 100 mls/hr 09/20/19 20:00 09/22/19 20 :04 / Device IVPB 50 mls 0400,1200,2000 [place] Administration Montelukast Sodium 10 mg 09/20/19 21:00 09/22/19 20:03 Singulair PO 10 mg HS GROVER Administration Morphine Sulfate 2 mg 09/20/19 12:52 09/22/19 15:13 Morphine SLOW IVP 2 mg Q1H PRN Administration Moderate Breakthrough Pain Pantoprazole Sodium 40 mg 09/21/19 09:00 09/22/19 09:44 Protonix PO 40 mg DAILY [place] Administration Rosuvastatin Calcium 20 mg 09/20/19 21:00 09/22/19 19:59 Crestor PO 20 mg HS GROVER Administration Tamsulosin HCl 0.4 mg 09/20/19 21:00 09/22/19 20:00 Flomax PO 0.4 mg HS GROVER Administration Tizanidine HCl 4 mg 09/20/19 12:52 09/22/19 06:38 Zanaflex PO 4 mg Q6H PRN Administration Muscle Spasm Tramadol HCl 50 mg 09/20/19 12:52 09/22/19 09:46 Ultram PO 50 mg Q6H PRN Administration Mild Pain (1-3) - Exam General Appearance: awake alert ENT: normocephalic atraumatic Neck: supple Heart: RRR Respiratory: no wheezes Gastrointestinal: soft, non-tender, non-distended, normal bowel sounds Skin: normal turgor Psychiatric: normal affect, normal behavior Hosp A/P (1) Constipation Code(s): K59.00 - CONSTIPATION, UNSPECIFIED Status: Acute (2) Hypertension Code(s): I10 - ESSENTIAL (PRIMARY) HYPERTENSION Status: Chronic (3) PAF (paroxysmal atrial fibrillation) Code(s): I48.0 - PAROXYSMAL ATRIAL FIBRILLATION Status: Chronic (4) Dyslipidemia Code(s): E78.5 - HYPERLIPIDEMIA, UNSPECIFIED Status: Chronic (5) GERD (gastroesophageal reflux disease) Code(s): K21.9 - GASTRO-ESOPHAGEAL REFLUX DISEASE WITHOUT ESOPHAGITIS Status: Chronic (6) Asthma Code(s): J45.909 - UNSPECIFIED ASTHMA, UNCOMPLICATED Status: Chronic - Plan PT/OT Trial miralax, HTN controlled. Continue Protonic Pt has miller catheter in place for urinary retention. Ambulate pt. On Crestor ? Inpt Rehab
[2019-09-23] MEDS: CEFAZOLIN 2 GM in Premix Bag 1 BAG IVPB SCH ×3 (03:27→20:05)
--- NOTE | 2019-09-23 07:33 | PRG ---
DATE OF SERVICE: 09/23/2019 I saw Mr. Wright on rounds this morning. He says the muscle spasm he had over the weekend is much better today than it has been. He can get in and out of bed with greater ease today. He is interested in inpatient rehabilitation. I do not see any fevers recorded through the entire weekend. His drain seems to be tapering off. There has been 50 mL out since 7:00 a.m. this morning and they are still less than 60, I think it can be withdrawn safely. If he is interested in inpatient rehabilitation, then we can get the Case Management team to get him approved and transferred at any time. Job ID: [id number] MTDD
[2019-09-23] MEDS: Furosemide 40 MG TAB PO SCH (08:36)
[2019-09-23] MEDS: Fluticasone Propionate Nasal Spray 16 gm Bottle NASAL SCH ×2 (08:36→21:20)
[2019-09-23] MEDS: Acyclovir 200 mg Capsule PO SCH ×2 (08:36→20:07)
[2019-09-23] MEDS: HYDROcodone/Acetaminophen 7.5/325 mg Tablet PO PRN ×2 (08:40→16:38)
--- NOTE | 2019-09-23 19:44 | PDOC.HOSPP ---
- Subjective Encounter Date: 09/23/19 Encounter Time: 11:00 Subjective: Pt seen for followup regarding constipation. feels better today, still constipated. - Objective Vital Signs & Weight: Vital Signs (12 hours) Temp Pulse Resp BP Pulse Ox 09/23/19 16:02 97.8 F 99 18 133/79 94 L 09/23/19 11:07 97.9 F 85 16 123/77 94 L 09/23/19 08:00 99 Weight Weight 180 lb I&O: 09/22/19 09/23/19 09/24/19 06:59 06:59 06:59 Intake Total 1600 1190 990 Output Total 5881 4671 420 Balance -002 -2832 570 Result Diagrams: 09/21/19 05:43 09/21/19 05:43 Additional Labs: Labs and MARs reviewed by sd Hospitalist ROS - Review of Systems Gastrointestinal: reports: constipation. denies: nausea, vomiting, abdominal pain, diarrhea, melena, hematochezia Skin: denies: rash, lesions, jane, bruising - Medication Medications: Active Medications Generic Name Dose Route Start Last Admin Trade Name Freq PRN Reason Stop Dose Admin Hydrocodone Bitart/Acetaminophen 1 tab 09/20/19 12:52 09/23/19 16:38 [place] 7.5/325 PO 1 tab Q4H PRN Administration Mild Pain (1-3) Acyclovir 200 mg 09/20/19 21:00 09/23/19 08:36 Zovirax PO 09/27/19 21:01 200 mg BID [place] Administration Diazepam 5 mg 09/22/19 09:57 09/22/19 11:08 Valium PO 5 mg TIDPRN PRN Administration muscle spasm Diltiazem HCl 180 mg 09/20/19 21:00 09/22/19 21:26 Cardizem Cd PO 180 mg HS GROVER Administration Ezetimibe 10 mg 09/20/19 21:00 09/22/19 20:00 Zetia PO 10 mg HS GROVER Administration Fluticasone Propionate 0 gm 09/20/19 21:00 09/23/19 08:36 Flonase Nasal [place] NASAL 1 spr BID GROVER Administration Furosemide 40 mg 09/21/19 09:00 09/23/19 08:36 Lasix PO 40 mg DAILY GROVER Administration Cefazolin Sodium/Dextrose 2 gm 50 mls @ 100 mls/hr 09/20/19 20:00 09/23/19 12 :53 / Device IVPB 50 mls 0400,1200,2000 GR[place] Administration Magnesium Hydroxide 30 ml 09/20/19 12:52 09/23/19 08:34 Milk Of Magnesium PO 30 ml Q12H PRN Administration Constipation Montelukast Sodium 10 mg 09/20/19 21:00 09/22/19 20:03 Singulair PO 10 mg HS RG[place] Administration Morphine Sulfate 2 mg 09/20/19 12:52 09/22/19 15:13 Morphine SLOW IVP 2 mg Q1H PRN Administration Moderate Breakthrough Pain Pantoprazole Sodium 40 mg 09/21/19 09:00 09/23/19 08:36 Protonix PO 40 mg DAILY [place] Administration Polyethylene Glycol 17 gm 09/22/19 09:59 09/23/19 08:36 Miralax PO 17 gm DAILYPRN PRN Administration Constipation Rosuvastatin Calcium 20 mg 09/20/19 21:00 09/22/19 19:59 Crestor PO 20 mg HS GROVER Administration Tamsulosin HCl 0.4 mg 09/20/19 21:00 09/22/19 20:00 Flomax PO 0.4 mg HS GROVER Administration Tizanidine HCl 4 mg 09/20/19 12:52 09/22/19 06:38 Zanaflex PO 4 mg Q6H PRN Administration Muscle Spasm Tramadol HCl 50 mg 09/20/19 12:52 09/22/19 21:26 Ultram PO 50 mg Q6H PRN Administration Mild Pain (1-3) - Exam General Appearance: awake alert ENT: normocephalic atraumatic, moist mucosa Neck: symmetric, no thyromegaly Heart: RRR Respiratory: CTAB Gastrointestinal: soft, non-tender Musculoskeletal: no muscle wasting Psychiatric: normal affect, normal behavior Hosp A/P (1) Constipation Code(s): K59.00 - CONSTIPATION, UNSPECIFIED Status: Acute (2) Hypertension Code(s): I10 - ESSENTIAL (PRIMARY) HYPERTENSION Status: Chronic (3) PAF (paroxysmal atrial fibrillation) Code(s): I48.0 - PAROXYSMAL ATRIAL FIBRILLATION Status: Chronic (4) Dyslipidemia Code(s): E78.5 - HYPERLIPIDEMIA, UNSPECIFIED Status: Chronic (5) GERD (gastroesophageal reflux disease) Code(s): K21.9 - GASTRO-ESOPHAGEAL REFLUX DISEASE WITHOUT ESOPHAGITIS Status: Chronic (6) Asthma Code(s): J45.909 - UNSPECIFIED ASTHMA, UNCOMPLICATED Status: Chronic - Plan PT/OT, out of bed/ambulate Trial milk of magnesia/magnesium citrate HTN controlled. Continue Protonix miller catheter for urinary retention. continue Crestor
[2019-09-23] MEDS: Rosuvastatin 20 MG TAB PO SCH (20:06)
[2019-09-23] MEDS: Ezetimibe 10 MG TAB PO SCH (20:06)
[2019-09-23] MEDS: Tamsulosin HCl 0.4 MG CAP PO SCH (20:07)
[2019-09-23] MEDS: Montelukast Sodium 10 mg Tablet PO SCH (20:07)
[2019-09-23] MEDS ORDERED: Magnesium Citrate 300 ML BOT PO SCH (21:00)
[2019-09-24] MEDS: HYDROcodone/Acetaminophen 7.5/325 mg Tablet PO PRN ×2 (06:04→17:02)
[2019-09-24] MEDS: Acyclovir 200 mg Capsule PO SCH ×2 (07:30→20:21)
[2019-09-24] MEDS: Fluticasone Propionate Nasal Spray 16 gm Bottle NASAL SCH ×2 (07:31→20:21)
[2019-09-24] MEDS: Furosemide 40 MG TAB PO SCH (07:31)
--- NOTE | 2019-09-24 07:47 | PRG ---
DATE OF SERVICE: 09/24/2019 I saw Mr. Wright this morning. He made a complete lap around the floor yesterday with this therapist. This is a nice improvement in his back. He is feeling better. Once he is up and moving, things seem to be working well. Getting out of bed first thing in the morning seems to be his most difficult maneuver of the day. Mr. Wright was visited by Case Management yesterday to discuss placement after hospitalization. He does not remember the discussion. Overnight, the vitals have been stable. The catheter remains in. We are going to remove the urinary catheter today. He is in agreement with this plan. We will make sure he can empty his bladder. Thereafter, we will need a plan for post hospital care. This could be inpatient rehabilitation or discharge home. We can initiate that plan today so long as he empties his bladder. Job ID: [id number] MTDD
--- NOTE | 2019-09-24 18:55 | PDOC.HOSPP ---
- Subjective Encounter Date: 09/24/19 Encounter Time: 12:30 Subjective: Pt seen for followup for hypertension. Had BM today. - Objective Vital Signs & Weight: Vital Signs (12 hours) Temp Pulse Resp BP BP Pulse Ox 09/24/19 16:00 98 09/24/19 15:25 99 F 90 16 118/79 98 09/24/19 12:00 95 09/24/19 11:24 98.2 F 66 14 106/70 95 09/24/19 08:00 92 L 09/24/19 07:12 98.6 F 77 14 105/69 92 L Weight Weight 180 lb I&O: 09/23/19 09/24/19 09/25/19 06:59 06:59 06:59 Intake Total 0124 547 4070 Output Total 3790 1120 1300 Balance -2600 -130 -220 Result Diagrams: 09/21/19 05:43 09/21/19 05:43 Additional Labs: Labs and MARs reviewed by al Hospitalist ROS - Review of Systems Gastrointestinal: denies: nausea, vomiting, abdominal pain, diarrhea, constipation, melena, hematochezia Genitourinary: reports: retention. denies: dysuria, frequency, incontinence, hematuria - Medication Medications: Active Medications Generic Name Dose Route Start Last Admin Trade Name Freq PRN Reason Stop Dose Admin Hydrocodone Bitart/Acetaminophen 1 tab 09/20/19 12:52 09/24/19 17:02 [place] 7.5/325 PO 1 tab Q4H PRN Administration Mild Pain (1-3) Acyclovir 200 mg 09/20/19 21:00 09/24/19 07:30 Zovirax PO 09/27/19 21:01 200 mg BID [place] Administration Diazepam 5 mg 09/22/19 09:57 09/22/19 11:08 Valium PO 5 mg TIDPRN PRN Administration muscle spasm Diltiazem HCl 180 mg 09/20/19 21:00 09/23/19 21:21 Cardizem Cd PO 180 mg HS GROVER Administration Ezetimibe 10 mg 09/20/19 21:00 09/23/19 20:06 Zetia PO 10 mg HS GROVER Administration Fluticasone Propionate 0 gm 09/20/19 21:00 09/24/19 07:31 Flonase Nasal [place] NASAL 1 spr BID GROVER Administration Furosemide 40 mg 09/21/19 09:00 09/24/19 07:31 Lasix PO 40 mg DAILY [place] Administration Magnesium Hydroxide 30 ml 09/20/19 12:52 09/23/19 08:34 Milk Of Magnesium PO 30 ml Q12H PRN Administration Constipation Montelukast Sodium 10 mg 09/20/19 21:00 09/23/19 20:07 Singulair PO 10 mg HS GROVER Administration Morphine Sulfate 2 mg 09/20/19 12:52 09/22/19 15:13 Morphine SLOW IVP 2 mg Q1H PRN Administration Moderate Breakthrough Pain Pantoprazole Sodium 40 mg 09/21/19 09:00 09/24/19 07:31 Protonix PO 40 mg DAILY [place] Administration Polyethylene Glycol 17 gm 09/22/19 09:59 09/23/19 08:36 Miralax PO 17 gm DAILYPRN PRN Administration Constipation Rosuvastatin Calcium 20 mg 09/20/19 21:00 09/23/19 20:06 Crestor PO 20 mg HS GROVER Administration Tamsulosin HCl 0.4 mg 09/20/19 21:00 09/23/19 20:07 Flomax PO 0.4 mg HS GROVER Administration Tizanidine HCl 4 mg 09/20/19 12:52 09/22/19 06:38 Zanaflex PO 4 mg Q6H PRN Administration Muscle Spasm Tramadol HCl 50 mg 09/20/19 12:52 09/22/19 21:26 Ultram PO 50 mg Q6H PRN Administration Mild Pain (1-3) - Exam General Appearance: awake alert Eye: anicteric sclera ENT: moist mucosa Neck: supple Heart: RRR Respiratory: CTAB Gastrointestinal: soft, non-tender Psychiatric: normal affect, normal behavior Hosp A/P (1) Hypertension Code(s): I10 - ESSENTIAL (PRIMARY) HYPERTENSION Status: Chronic (2) PAF (paroxysmal atrial fibrillation) Code(s): I48.0 - PAROXYSMAL ATRIAL FIBRILLATION Status: Chronic (3) Dyslipidemia Code(s): E78.5 - HYPERLIPIDEMIA, UNSPECIFIED Status: Chronic (4) GERD (gastroesophageal reflux disease) Code(s): K21.9 - GASTRO-ESOPHAGEAL REFLUX DISEASE WITHOUT ESOPHAGITIS Status: Chronic (5) Asthma Code(s): J45.909 - UNSPECIFIED ASTHMA, UNCOMPLICATED Status: Chronic (6) Constipation Code(s): K59.00 - CONSTIPATION, UNSPECIFIED Status: Resolved - Plan constipation resolved. HTN controlled. On Protonix on Crestor
[2019-09-24] MEDS: Ezetimibe 10 MG TAB PO SCH (20:21)
[2019-09-24] MEDS: Montelukast Sodium 10 mg Tablet PO SCH (20:21)
[2019-09-24] MEDS: Rosuvastatin 20 MG TAB PO SCH (20:21)
[2019-09-24] MEDS: Tamsulosin HCl 0.4 MG CAP PO SCH (20:21)
[2019-09-25] MEDS: HYDROcodone/Acetaminophen 7.5/325 mg Tablet PO PRN (05:54)
--- NOTE | 2019-09-25 07:45 | PRG ---
DATE OF SERVICE: 09/25/2019 I saw Mr. Wright in his hospital room this morning. He is beginning to become a little bit frustrated with being in the hospital. He is able to get himself in and out of bed and walk to the bathroom with a walker on his own. He is wondering when the Pretty will come out. I do not see any fevers on his recorded vital signs. His neurological examination is stable. We are going to place the order once again today to remove the Pretty. He can be discharged from the hospital. Job ID: [id number] MTDD
[2019-09-25] MEDS: Fluticasone Propionate Nasal Spray 16 gm Bottle NASAL SCH (07:55)
[2019-09-25] MEDS: Furosemide 40 MG TAB PO SCH (07:56)
[2019-09-25] MEDS: Acyclovir 200 mg Capsule PO SCH (07:56)
[2019-09-25 12:17] VITALS: BP 127/75; TEMP 97.5
--- NOTE | 2019-09-26 14:18 | DIS ---
DATE OF ADMISSION: 09/20/2019 DATE OF DISCHARGE: 09/25/2019 HOSPITAL COURSE: Mr. Wright is a 73-year-old gentleman with lower back and leg pain. He underwent a laminectomy at L2-L3, L3-L4 with TLIF. Following the surgery, he was transitioned to the med/surg floor. Pretty was kept in place per the patient's request because he had urinary retention after his carotid endarterectomies. He was having some muscle spasms with Zanaflex and was switched over to Valium. His pain has been well controlled with p.o. medications and he is tolerating a regular diet. His LISA drain is trending downward and was removed on postoperative day 5. He is otherwise doing well and ambulating in the hallways with a walker and has been waiting patiently to go to inpatient rehabilitation. He states he is ready to go home and does not want to wait for inpatient rehab anymore. PHYSICAL EXAMINATION: Today, he is awake, alert, in no acute distress. He has free active range of motion in all extremities. No focal motor weakness. No reflex asymmetry. His incision is clean, dry, and intact. Per his wishes, we will discharge Mr. Wright home today. I have discussed home care precautions with him. CONDITION ON DISCHARGE: The patient had no emergencies. Condition was stable for discharge. MEDICATIONS: Home going medications were reviewed. FOLLOWUP: Followup arrangements made by our implementation coordinator in the clinic and call to the patient. ACTIVITIES: Restrictions were given in person. Wound care showers are acceptable. The patient should pat the incision dry, but not submerge under the surface of the body of water for 2 months. Job ID: [id number] [facility]
== END 2019-09-25 15:40 | disposition home or self-care (01) | DRG 455 ==
LOC: SDC 05:21 → SJJU 14:40
PROVIDERS: ADMIT Neurological Surgery; ATTEND Neurological Surgery
PROC: 0SG10AJ Fusion of 2 or more Lumbar Vertebral Joints with Interbody Fusion Device, Posterior Approach, Anterior Column, Open Approach (ICD-10-PCS; principal; 2019-09-20)
PROC: 0SG1071 Fusion of 2 or more Lumbar Vertebral Joints with Autologous Tissue Substitute, Posterior Approach, Posterior Column, Open Approach (ICD-10-PCS; 2019-09-20)
PROC: 01NB0ZZ Release Lumbar Nerve, Open Approach (ICD-10-PCS; 2019-09-20)
DX: M41.26 Other idiopathic scoliosis, lumbar region (principal); M48.061 Spinal stenosis, lumbar region without neurogenic claudication; E78.5 Hyperlipidemia, unspecified; I10 Essential (primary) hypertension; K21.9 Gastro-esophageal reflux disease without esophagitis; Z96.659 Presence of unspecified artificial knee joint; J45.909 Unspecified asthma, uncomplicated; K59.00 Constipation, unspecified; I48.0 Paroxysmal atrial fibrillation; E78.00 Pure hypercholesterolemia, unspecified; M54.16 Radiculopathy, lumbar region; Z98.42 Cataract extraction status, left eye; Z98.41 Cataract extraction status, right eye; Z79.01 Long term (current) use of anticoagulants
CPT/HCPCS: 36415; 76000; 80048; 85025; 85027; 87635; 93005; C1713; C1768; J0171; J0690; J1100; J2270; J2405; J2704; J3010; J3370; J3490; S0020; U0003

== ENCOUNTER 2019-10-03 16:57 | Inpatient (IN) | payer MEDICARE, OTHER ==
[2019-10-03 17:37] VITALS: BMI 25.8
[2019-10-03] MEDS ORDERED: Senokot S 8.6-50 MG TAB PO PRN (18:30)
[2019-10-03] MEDS ORDERED: Acetaminophen 325 MG TAB PO PRN (18:30)
[2019-10-03] MEDS ORDERED: Acetaminophen 650 MG Suppository PR PRN (18:30)
[2019-10-03 19:11] LABS: #Basophils 0.1 thou/uL (0.0-0.2); #Eosinphils 0.1 thou/uL (0.0-0.7); #Lymphocytes 1.2 thou/uL (1.20-3.40); #Monocytes 0.9 thou/uL (0.11-0.59); #Neutrophils 5.7 thou/uL (1.40-6.50); %Basophils 0.6 % (0.0-1.0); %Eosinophils 1.1 % (0.0-10.0); %Lymphocytes 15.5 % (21.0-51.0); %Monocytes 11.5 % (0.0-10.0); %Neutrophils 71.4 % (42.0-75.0); Hemoglobin 11.1 g/dL (14.0-18.0); Mean Corpuscular HGB CONC 32.9 g/dL (32.0-36.0); Mean Corpuscular Hemoglobin 28.3 pg (27.0-31.0); Mean Corpuscular Volume 85.9 fL (78.0-98.0); Mean Platelet Volume 7.4 fL (7.4-10.4); Platelet Count 297 thou/uL (130-400); RBC Distribution Width 12.4 % (11.5-14.5); Red Blood Cell (RBC) Count 3.92 mill/uL (4.70-6.10); White Blood Cell (WBC) Count 7.9 thou/uL (4.8-10.8)
[2019-10-03] MEDS ORDERED: Enoxaparin Sodium 80 MG/0.8 ML SYRINGE SC SCH ×2 (19:15→21:00)
--- NOTE | 2019-10-03 19:19 | PDOC.HHP ---
Hospitalist HPI - History of Present Illness Right lower leg pain History of Present Illness: Patient presents with complaints of right lower leg pain that started on Monday and he attempted to call Dr. Doty's office Monday, Monday and Monday. States he spoke to the PA and was prescribed Gabapentin for nerve related pain. Due to persisting pain he opted to call Dr. Anderson who saw him in the clinic today. Swelling was noted on exam which the patient hadn't noticed. He was transferred here for direct admission after a venous doppler confirmed presence of a DVT. Patient had recent back surgery on 09/19, tia remain in place. He has not had any bleeding, drainage from the wound. It has been healing well. There is concern over starting him on Coumadin due risk of bleeding with recent surgery. Hospitalist ROS - Review of Systems Constitutional: denies: fever, chills, sweats, weakness, malaise, other Eyes: denies: pain, vision change, conjunctivae inflammation, eyelid inflammation, redness, other ENT: denies: ear pain, ear discharge, nose pain, nose discharge, nose congestion , mouth pain, mouth swelling, throat pain, throat swelling, other Respiratory: denies: cough, dry, shortness of breath, hemoptysis, SOB with excertion, pleuritic pain, sputum, wheezing, other Cardiovascular: denies: chest pain, palpitations, orthopnea, paroxysmal noc. dyspnea, edema, light headedness, other Gastrointestinal: denies: nausea, vomiting, abdominal pain, diarrhea, constipation, melena, hematochezia, other Genitourinary: denies: dysuria, frequency, incontinence, hematuria, retention, other Musculoskeletal: reports: leg pain (right calf pain). denies: neck pain, shoulder pain, arm pain, back pain, hand pain, foot pain, other Skin: denies: rash, lesions, jane, bruising, other Neurological: denies: weakness, numbness, incoordination, change in speech, confusion, seizures, other - Medication Medications: ALLERGIES: No known drug allergies. CURRENT MEDICATIONS: 1. Acyclovir. 2. Diltiazem. 3. Ezetimibe. 4. Fluticasone. 5. Furosemide. 6. Montelukast. 7. Tamsulosin. 8. Rosuvastatin. Hospitalist History - Past Medical History Source: patient Cardiac: reports: AFIB, HTN, Hyperlipidemia Pulmonary: reports: asthma IC ENGINEER: reports: Other (Headaches) Gastrointestinal: reports: GERD ENT: reports: Other (Cataracts) - Past Surgical History Past Surgical History: reports: Hernia Repair, Total Knee Replacement, Tonsillectomy, Other (Vasectomy, sinus surgery, hemorrhoidectomy, S/p two carotid endarterectomy) - Family History Family History: reports: diabetes mellitus (father) - Social History Smoking Status: Never smoker Alcohol: reports: None Drugs: reports: none Living Situation: With Family Activity level: independent ambulation - Exam General Appearance: NAD, awake alert Eye: PERRL, anicteric sclera ENT: normocephalic atraumatic, no oropharyngeal lesions, moist mucosa Neck: supple, symmetric, no lymphadenopathy Heart: RRR, no murmur, no gallops, no rubs, normal peripheral pulses Respiratory: CTAB, no wheezes, no rales, no ronchi, normal chest expansion, no tachypnea Gastrointestinal: soft, non-tender, non-distended, normal bowel sounds, no palpable masses, no guarding, no rigidity Extremities - other findings: Right calf swelling and tenderness Skin: normal turgor, no lesions, no rashes Neurological: cranial nerve grossly intact, normal sensation to touch, no weakness, no focal deficits, no new deficit Musculoskeletal: normal tone, normal strength, no muscle wasting Psychiatric: normal affect, normal behavior, A&O x 3, oriented to person Hospitalist Results - Labs Result Diagrams: 10/07/19 05:30 10/06/19 06:07 Hospitalist H&P A/P - Problem (1) Right leg DVT Code(s): I82.401 - ACUTE EMBOLISM AND THOMBOS UNSP DEEP VEINS OF R LOW EXTREM Status: Acute (2) Back pain Code(s): M54.9 - DORSALGIA, UNSPECIFIED Status: Acute (3) Constipation Code(s): K59.00 - CONSTIPATION, UNSPECIFIED Status: Acute (4) History of back surgery Code(s): Z98.890 - OTHER SPECIFIED POSTPROCEDURAL STATES Status: Acute (5) Asthma Code(s): J45.909 - UNSPECIFIED ASTHMA, UNCOMPLICATED Status: Chronic (6) Dyslipidemia Code(s): E78.5 - HYPERLIPIDEMIA, UNSPECIFIED Status: Chronic (7) GERD (gastroesophageal reflux disease) Code(s): K21.9 - GASTRO-ESOPHAGEAL REFLUX DISEASE WITHOUT ESOPHAGITIS Status: Chronic (8) Hypertension Code(s): I10 - ESSENTIAL (PRIMARY) HYPERTENSION Status: Chronic (9) PAF (paroxysmal atrial fibrillation) Code(s): I48.0 - PAROXYSMAL ATRIAL FIBRILLATION Status: Chronic - Plan Plan: Will start anticoagulation with Lovenox. Dr. Doty to decide if ok to start Coumadin, given recent spinal surgery. Monitor BP. Obtain baseline EKG, given history of afib. Monitor BP. Stool stofteners for constipation. Reconcile home medications once verified. Famotidine 20 mg PO BID for GI Prophylaxis. CODE STATUS: FULL Surrogate decision maker is his Medina Wright.
[2019-10-03 19:31] LABS: ALT (SGPT) 14 U/L (8-55); AST (SGOT) 17 U/L (5-34); Albumin 3.6 g/dL (3.4-4.8); Alkaline Phosphatase 133 U/L (40-110); Anion Gap 12 mmol/L (10-20); BUN (Urea Nitrogen) 15 mg/dL (8.4-25.7); Bilirubin, Total 0.5 mg/dL (0.2-1.2); Calc. Creatinine Clearance 74 mL/min (70-130); Calcium 9.4 mg/dL (7.8-10.44); Carbon Dioxide 32 mmol/L (23-31); Chloride 98 mmol/L (98-107); Estimated GFR-MDRD 74; Globulin 2.6 g/dL (2.4-3.5); Glucose 111 mg/dL (83-110); Potassium 4.1 mmol/L (3.5-5.1); Protein, Total 6.2 g/dL (5.8-8.1); Sodium 138 mmol/L (136-145)
[2019-10-03] MEDS ORDERED: Polyethylene Glycol 3350 17 GM Packet PO PRN (19:46)
[2019-10-03] MEDS ORDERED: Polyethylene Glycol 3350 17 GM Packet PO SCH (20:00)
[2019-10-03] MEDS: Rosuvastatin 20 MG TAB PO SCH (20:27)
[2019-10-03] MEDS: Famotidine 20 MG TAB PO SCH (20:27)
[2019-10-03] MEDS: Ezetimibe 10 MG TAB PO SCH (20:27)
[2019-10-03] MEDS: Tamsulosin HCl 0.4 MG CAP PO SCH (20:28)
[2019-10-03] MEDS: Fluticasone Propionate Nasal Spray 16 gm Bottle NASAL SCH (20:28)
[2019-10-03] MEDS: Montelukast Sodium 10 mg Tablet PO SCH (20:28)
[2019-10-04 05:47] LABS: PTT 33.2 sec (22.9-36.1)
[2019-10-04 05:51] LABS: INR-International Normal Ratio 1.1; Prothrombin Time 13.8 sec (12.0-14.7)
--- NOTE | 2019-10-04 06:38 | PRG ---
DATE OF SERVICE: 10/04/2019 I had extensive discussion with Dr. Gold Anderson yesterday concerning Mr. Wright. Mr. Wright is now 2 weeks out from his lumbar spine operation. He has a DVT. Given that he is 2 weeks out from surgery, it is safe to start anticoagulation. I am a bit hesitant to use any of the newer drugs that cannot be reversed immediately should he develop a hematoma at the operative site. However, using the heparin/Coumadin combination may require him to be in the hospital and therefore, using hospital facilities during the COVID pandemic and potentially been exposed to other sick people. Dr. Anderson knows that the patient could be involved in his own decision making process on this and now that he is in the hospital, I assume he has chosen the heparin/Coumadin combination. This does give us the opportunity to stop the heparin and reverse Coumadin should any untoward events happen at the operative site. I think the risk is low. IVC filter used for a week could delay the decision, but I think the risk is as low now as it will be one week from and therefore, we can proceed with heparinization, a few days of Coumadin before anticoagulation sets in and then Coumadin at home. Please call us with questions. Job ID: [id number]
[2019-10-04] MEDS ORDERED: Furosemide 40 MG TAB PO SCH (09:00)
[2019-10-04] MEDS ORDERED: Enoxaparin Sodium 80 MG/0.8 ML SYRINGE SC SCH (09:00)
[2019-10-04] MEDS ORDERED: Heparin 10,000 UNITS/ 10 ML VIAL SLOW IVP SCH (09:15)
[2019-10-04] MEDS ORDERED: Warfarin Sodium 5 MG TAB PO SCH (09:15)
[2019-10-04] MEDS: predniSONE 5 MG TAB PO SCH (09:23)
[2019-10-04] MEDS: Fluticasone Propionate Nasal Spray 16 gm Bottle NASAL SCH ×2 (09:24→20:36)
--- NOTE | 2019-10-04 09:36 | PDOC.HOSPP ---
- Subjective Encounter Date: 10/04/19 Encounter Time: 10:00 Subjective: Patient seen and examined for DVT. . No overnight events. Patient complained of right leg pain rated as a "29 out of 10." - Objective Vital Signs & Weight: Vital Signs (12 hours) Temp Pulse Resp BP Pulse Ox 10/04/19 07:40 97.9 F 85 18 121/72 98 10/04/19 04:07 98.4 F 90 17 106/70 93 L 10/04/19 00:00 97.9 F 80 18 106/68 95 Weight Weight 180 lb I&O: 10/03/19 10/04/19 10/05/19 06:59 06:59 06:59 Intake Total 480 Balance 480 Result Diagrams: 10/04/19 09:51 10/03/19 18:50 EKG Reviewed by me: Yes (Tele - SR) Hospitalist ROS - Review of Systems Constitutional: denies: fever, chills, sweats Respiratory: denies: cough, dry, shortness of breath, hemoptysis Gastrointestinal: denies: nausea, vomiting, abdominal pain Genitourinary: denies: dysuria, frequency, hematuria Musculoskeletal: reports: leg pain (right leg pain) - Medication Medications: Active Medications Generic Name Dose Route Start Last Admin Trade Name Freq PRN Reason Stop Dose Admin Diltiazem HCl 180 mg 10/03/19 21:00 10/03/19 20:27 Cardizem Cd PO 180 mg HS [facility] Administration Ezetimibe 10 mg 10/03/19 21:00 10/03/19 20:27 Zetia PO 10 mg HS [facility] Administration Fluticasone Propionate 0 gm 10/03/19 21:00 10/04/19 09:24 Flonase Nasal [place] NASAL 2 spr BID [facility] Administration Furosemide 40 mg 10/04/19 09:00 10/04/19 09:24 Lasix PO 40 mg DAILY [facility] Administration Montelukast Sodium 10 mg 10/03/19 21:00 10/03/19 20:28 Singulair PO 10 mg HS [facility] Administration Prednisone 2.5 mg 10/04/19 09:00 10/04/19 09:23 Prednisone PO 2.5 mg QAM [facility] Administration Rosuvastatin Calcium 20 mg 10/03/19 21:00 10/03/19 20:27 Crestor PO 20 mg HS [facility] Administration Tamsulosin HCl 0.4 mg 10/03/19 21:00 10/03/19 20:28 Flomax PO 0.4 mg HS [facility] Administration - Exam General Appearance: awake alert Neck: supple, symmetric, no JVD, no thyromegaly Heart: no murmur, no gallops, no rubs, normal peripheral pulses Respiratory: CTAB, no wheezes, no rales, no ronchi Gastrointestinal: non-tender, non-distended, normal bowel sounds, no guarding, no rigidity Extremities: no cyanosis Extremities - other findings: RLE swelling + Neurological: no new deficit Psychiatric: normal affect, normal behavior, A&O x 3 Hosp A/P - Plan out of bed/ambulate, DVT proph w/heparin RLE DVT HTN Par Afib - anticoag on hold due to recent surgery GERD Recent back surgery Mild int Asthma Constipation PLAN: NSG input appreciated Will change Lovenox to Heparin drip per NSG rec. Pt is not a candidate for newer anticoag due to recent surgery (per NSG) Monitor PTT Start Warfarin Pt understands the complications associated with anticoagulation Monitor INR daily Low Vit K diet Cont Cardizem Pain control Add PT/OT Cont back brace Contacted Warfarin clinic for dc planning
[2019-10-04] MEDS ORDERED: Milk Of Magnesia 30 ML UDCUP PO PRN (09:47)
[2019-10-04 10:15] LABS: Hemoglobin 10.9 g/dL (14.0-18.0); Platelet Count 319 thou/uL (130-400)
[2019-10-04] MEDS ORDERED: Acyclovir 200 mg Capsule PO SCH ×2 (10:15)
[2019-10-04] MEDS: HYDROcodone/Acetaminophen 5/325 mg Tablet PO PRN (11:03)
[2019-10-04] MEDS: Famotidine 20 MG TAB PO SCH (11:20)
[2019-10-04 11:49] LABS: SARS-CoV-2 MS2 Positive; SARS-CoV-2 N Gene Negative; SARS-CoV-2 S Gene Negative; SARS-CoV-2 by NAA Not Detected (NotDetected); SARS-CoV-2 orf1ab Negative
[2019-10-04] MEDS: Heparin 25,000 units/D5W 500 ML IVPB SCH (12:12)
[2019-10-04] MEDS: Tamsulosin HCl 0.4 MG CAP PO SCH (20:34)
[2019-10-04] MEDS: Rosuvastatin 20 MG TAB PO SCH (20:34)
[2019-10-04] MEDS: Ezetimibe 10 MG TAB PO SCH (20:34)
[2019-10-04] MEDS: Montelukast Sodium 10 mg Tablet PO SCH (20:34)
[2019-10-04] MEDS: Senokot S 8.6-50 MG TAB PO SCH (20:34)
[2019-10-04] MEDS: Acyclovir 200 mg Capsule PO SCH (20:35)
[2019-10-04] MEDS ORDERED: Senokot S 8.6-50 MG TAB PO SCH (21:00)
[2019-10-05] MEDS: HYDROcodone/Acetaminophen 5/325 mg Tablet PO PRN (03:33)
[2019-10-05] MEDS: Heparin 25,000 units/D5W 500 ML IVPB SCH ×2 (05:20→23:48)
[2019-10-05] MEDS ORDERED: traMADol HCl 50 MG TAB PO PRN (08:05)
[2019-10-05] MEDS: predniSONE 5 MG TAB PO SCH (08:11)
[2019-10-05] MEDS: Acyclovir 200 mg Capsule PO SCH ×2 (08:11→21:13)
--- NOTE | 2019-10-05 08:11 | PDOC.HOSPP ---
- Subjective Encounter Date: 10/05/19 Encounter Time: 10:30 Subjective: Patient seen and examined for DVT. No bleeding. No CP/SOB. No new complaints. No overnight events - Objective Vital Signs & Weight: Vital Signs (12 hours) Temp Pulse Resp BP Pulse Ox 10/05/19 07:30 97.9 F 65 18 127/83 94 L 10/05/19 03:00 98.1 F 76 20 125/72 96 Weight Admit Weight 180 lb Weight 180 lb I&O: 10/04/19 10/05/19 10/06/19 06:59 06:59 06:59 Intake Total 480 Balance 480 Result Diagrams: 10/04/19 09:51 10/03/19 18:50 Hospitalist ROS - Review of Systems Constitutional: denies: fever, chills, sweats, weakness, malaise, other Respiratory: denies: cough, dry, shortness of breath, hemoptysis, SOB with excertion, pleuritic pain, sputum, wheezing, other Cardiovascular: denies: chest pain, palpitations, orthopnea, paroxysmal noc. dyspnea, edema, light headedness, other Gastrointestinal: denies: nausea, vomiting, abdominal pain, diarrhea, constipation, melena, hematochezia, other - Medication Medications: Active Medications Generic Name Dose Route Start Last Admin Trade Name Freq PRN Reason Stop Dose Admin Acyclovir 200 mg 10/04/19 21:00 10/04/19 20:35 Zovirax PO 10/11/19 21:01 200 mg BID [facility] Administration Diltiazem HCl 180 mg 10/03/19 21:00 10/04/19 20:35 Cardizem Cd PO 180 mg HS [facility] Administration Ezetimibe 10 mg 10/03/19 21:00 10/04/19 20:34 Zetia PO 10 mg HS [facility] Administration Fluticasone Propionate 0 gm 10/03/19 21:00 10/04/19 20:36 Flonase Nasal [place] NASAL 2 spr BID [facility] Administration Heparin Sodium/Dextrose 500 mls @ 0 mls/hr 10/04/19 09:15 10/05/19 05:20 Heparin 25,000 Units/D5w IVPB 500 mls INF [facility] Administration Protocol Per Protocol Montelukast Sodium 10 mg 10/03/19 21:00 10/04/19 20:34 Singulair PO 10 mg HS [facility] Administration Pantoprazole Sodium 40 mg 10/05/19 09:00 10/04/19 11:10 Protonix PO 40 mg DAILY [facility] Administration Prednisone 2.5 mg 10/04/19 09:00 10/04/19 09:23 Prednisone PO 2.5 mg QAM [facility] Administration Rosuvastatin Calcium 20 mg 10/03/19 21:00 10/04/19 20:34 Crestor PO 20 mg HS [facility] Administration Senna/Docusate Sodium 2 tab 10/04/19 21:00 10/04/19 20:34 Senokot S PO 2 tab BID [facility] Administration Sodium Chloride 10 ml 10/04/19 21:00 10/04/19 22:16 Flush - Normal Saline IVF 10 ml Q12HR [facility] Administration Tamsulosin HCl 0.4 mg 10/03/19 21:00 10/04/19 20:34 Flomax PO 0.4 mg HS [facility] Administration - Exam General Appearance: awake alert Heart: RRR, no murmur, no gallops, no rubs, normal peripheral pulses Respiratory: CTAB, no wheezes, no rales, no ronchi, normal chest expansion, no tachypnea, normal percussion Gastrointestinal: soft, non-tender, non-distended, normal bowel sounds, no palpable masses, no hepatomegaly, no splenomegaly, no guarding, no rigidity Hosp A/P - Plan DVT proph w/heparin RLE DVT -on Heparin drip -Started on Warfarin HTN Par Afib - Xarelto was dced prior to surgery GERD Recent back surgery Mild int Asthma Constipation PLAN: Cont Heparin drip Monitor PTT/PT/INR Cont Warfarin Reduce Lasix dose Cont low Vit K diet Cont Cardizem PT/OT with back brace Warfarin clinic to follow at dc AM labs
[2019-10-05] MEDS: Fluticasone Propionate Nasal Spray 16 gm Bottle NASAL SCH ×2 (08:12→21:10)
[2019-10-05] MEDS: Polyethylene Glycol 3350 17 GM Packet PO SCH (08:12)
[2019-10-05] MEDS: Senokot S 8.6-50 MG TAB PO SCH ×2 (08:13→21:09)
[2019-10-05] MEDS: Furosemide 20 MG TAB PO SCH (08:57)
[2019-10-05] MEDS: Acetaminophen/Codeine 30-300mg Tablet PO PRN ×2 (11:28→22:18)
[2019-10-05] MEDS ORDERED: Warfarin Sodium 5 MG TAB PO SCH (17:00)
[2019-10-05] MEDS: Montelukast Sodium 10 mg Tablet PO SCH (21:09)
[2019-10-05] MEDS: Ezetimibe 10 MG TAB PO SCH (21:09)
[2019-10-05] MEDS: Rosuvastatin 20 MG TAB PO SCH (21:09)
[2019-10-05] MEDS: Tamsulosin HCl 0.4 MG CAP PO SCH (21:09)
[2019-10-06 06:37] LABS: Hemoglobin 11.6 g/dL (14.0-18.0); Platelet Count 344 thou/uL (130-400)
[2019-10-06 06:48] LABS: INR-International Normal Ratio 1.2; Prothrombin Time 15.4 sec (12.0-14.7)
[2019-10-06 06:52] LABS: PTT 125.7 sec (22.9-36.1)
[2019-10-06 06:57] LABS: Anion Gap 10 mmol/L (10-20); BUN (Urea Nitrogen) 13 mg/dL (8.4-25.7); Calc. Creatinine Clearance 76 mL/min (70-130); Calcium 9.4 mg/dL (7.8-10.44); Carbon Dioxide 31 mmol/L (23-31); Chloride 101 mmol/L (98-107); Estimated GFR-MDRD 75; Glucose 116 mg/dL (83-110); Potassium 3.8 mmol/L (3.5-5.1); Sodium 138 mmol/L (136-145)
[2019-10-06] MEDS: predniSONE 5 MG TAB PO SCH (09:19)
[2019-10-06] MEDS: Senokot S 8.6-50 MG TAB PO SCH ×2 (09:20→20:15)
[2019-10-06] MEDS: Furosemide 20 MG TAB PO SCH (09:21)
[2019-10-06] MEDS: Fluticasone Propionate Nasal Spray 16 gm Bottle NASAL SCH ×2 (09:22→20:15)
[2019-10-06] MEDS: Polyethylene Glycol 3350 17 GM Packet PO SCH (09:22)
[2019-10-06] MEDS: Acyclovir 200 mg Capsule PO SCH ×2 (09:27→20:15)
--- NOTE | 2019-10-06 11:08 | PDOC.HOSPP ---
- Subjective Encounter Date: 10/06/19 Encounter Time: 16:45 Subjective: Patient seen and examined for DVT. No melena or any other complaints. No overnight events - Objective Vital Signs & Weight: Vital Signs (12 hours) Temp Pulse Resp BP BP Pulse Ox 10/06/19 07:52 97.5 F L 74 20 126/80 99 10/06/19 04:00 97.5 F L 68 16 117/68 95 10/06/19 00:00 98.1 F 78 16 138/93 H 94 L Weight Admit Weight 180 lb Weight 180 lb Result Diagrams: 10/07/19 05:30 10/06/19 06:07 Additional Labs: Laboratory Tests 10/06/19 06:07 INR 1.2 Hospitalist ROS - Review of Systems Respiratory: denies: cough, dry, shortness of breath, hemoptysis, SOB with excertion, pleuritic pain, sputum, wheezing, other Cardiovascular: denies: chest pain, palpitations, orthopnea, paroxysmal noc. dyspnea, edema, light headedness, other - Medication Medications: Active Medications Generic Name Dose Route Start Last Admin Trade Name Freq PRN Reason Stop Dose Admin Acetaminophen/Codeine Phosphate 1 tab 10/05/19 08:05 10/05/19 22:18 Tylenol #3 PO 1 tab Q6H PRN Administration Moderate Pain (4-6) Acyclovir 200 mg 10/04/19 21:00 10/06/19 09:27 Zovirax PO 10/11/19 21:01 200 mg BID [facility] Administration Diltiazem HCl 180 mg 10/03/19 21:00 10/05/19 21:09 Cardizem Cd PO 180 mg HS [facility] Administration Ezetimibe 10 mg 10/03/19 21:00 10/05/19 21:09 Zetia PO 10 mg HS [facility] Administration Fluticasone Propionate 0 gm 10/03/19 21:00 10/06/19 09:22 Flonase Nasal [place] NASAL 2 spr BID [facility] Administration Furosemide 20 mg 10/05/19 09:00 10/06/19 09:21 Lasix PO 20 mg DAILY [facility] Administration Heparin Sodium/Dextrose 500 mls @ 0 mls/hr 10/04/19 09:15 10/05/19 23:48 Heparin 25,000 Units/D5w IVPB 500 mls INF [facility] Administration Protocol Per Protocol Montelukast Sodium 10 mg 10/03/19 21:00 10/05/19 21:09 Singulair PO 10 mg HS [facility] Administration Pantoprazole Sodium 40 mg 10/05/19 09:00 10/06/19 09:21 Protonix PO 40 mg DAILY [facility] Administration Polyethylene Glycol 17 gm 10/05/19 09:00 10/06/19 09:22 Miralax PO 17 gm DAILY [facility] Administration Prednisone 2.5 mg 10/04/19 09:00 10/06/19 09:19 Prednisone PO 2.5 mg QAM [facility] Administration Rosuvastatin Calcium 20 mg 10/03/19 21:00 10/05/19 21:09 Crestor PO 20 mg HS [facility] Administration Senna/Docusate Sodium 2 tab 10/04/19 21:00 10/06/19 09:20 Senokot S PO 2 tab BID [facility] Administration Sodium Chloride 10 ml 10/04/19 21:00 10/06/19 09:22 Flush - Normal Saline IVF 10 ml Q12HR [facility] Administration Tamsulosin HCl 0.4 mg 10/03/19 21:00 10/05/19 21:09 Flomax PO 0.4 mg HS [facility] Administration Warfarin Sodium 5 mg 10/05/19 17:00 10/05/19 16:59 Coumadin PO 5 mg 1700 [facility] Administration - Exam General Appearance: NAD Neck: supple, no JVD Heart: no gallops, no rubs Respiratory: CTAB, no rales Gastrointestinal: non-tender, normal bowel sounds Extremities: no cyanosis, no clubbing Hosp A/P - Plan RLE DVT -on Heparin drip -Started on Warfarin HTN Par Afib - Xarelto was dced prior to surgery GERD Recent back surgery Mild int Asthma Constipation PLAN: 10/05 INR 1.2 Cont Warfarin with Heparin drip PTT monitoring per protocol Cont PT Cont other meds as above Monitor INR daily 10/04 Cont Heparin drip Monitor PTT/PT/INR Cont Warfarin Reduce Lasix dose Cont low Vit K diet Cont Cardizem PT/OT with back brace Warfarin clinic to follow at dc AM labs
[2019-10-06] MEDS ORDERED: Warfarin Sodium 10 MG TAB PO SCH (17:00)
[2019-10-06] MEDS: Acetaminophen/Codeine 30-300mg Tablet PO PRN (17:21)
[2019-10-06] MEDS: Montelukast Sodium 10 mg Tablet PO SCH (20:15)
[2019-10-06] MEDS: Tamsulosin HCl 0.4 MG CAP PO SCH (20:15)
[2019-10-06] MEDS: Ezetimibe 10 MG TAB PO SCH (20:15)
[2019-10-06] MEDS: Rosuvastatin 20 MG TAB PO SCH (20:15)
[2019-10-06] MEDS: Heparin 25,000 units/D5W 500 ML IVPB SCH (20:47)
[2019-10-07 05:40] LABS: Hemoglobin 11.3 g/dL (14.0-18.0); Platelet Count 342 thou/uL (130-400)
[2019-10-07 05:47] LABS: INR-International Normal Ratio 1.7; Prothrombin Time 19.9 sec (12.0-14.7)
[2019-10-07] MEDS: predniSONE 5 MG TAB PO SCH (08:35)
[2019-10-07] MEDS: Acyclovir 200 mg Capsule PO SCH ×2 (08:35→20:44)
[2019-10-07] MEDS: Furosemide 20 MG TAB PO SCH (08:37)
[2019-10-07] MEDS: Fluticasone Propionate Nasal Spray 16 gm Bottle NASAL SCH ×2 (08:38→20:41)
[2019-10-07] MEDS: Polyethylene Glycol 3350 17 GM Packet PO SCH (08:38)
[2019-10-07] MEDS: Senokot S 8.6-50 MG TAB PO SCH ×2 (08:39→20:51)
--- NOTE | 2019-10-07 10:45 | PDOC.HOSPP ---
- Subjective Encounter Date: 10/07/19 Encounter Time: 13:20 Subjective: Patient was seen and examined for DVT. No overnight events. In terms of overnight events, patient reports a headache and abdominal pain. - Objective Vital Signs & Weight: Vital Signs (12 hours) Temp Pulse Resp BP Pulse Ox 10/07/19 08:00 98 10/07/19 07:49 97.7 F 97 18 113/76 98 Weight Admit Weight 180 lb Weight 180 lb I&O: 10/06/19 10/07/19 10/08/19 06:59 06:59 06:59 Intake Total 494 Balance 494 Result Diagrams: 10/07/19 05:30 10/06/19 06:07 Hospitalist ROS - Review of Systems Constitutional: denies: fever, chills, sweats, weakness, malaise, other Respiratory: denies: cough, dry, shortness of breath, hemoptysis, SOB with excertion, pleuritic pain, sputum, wheezing, other Cardiovascular: denies: chest pain, palpitations, orthopnea, paroxysmal noc. dyspnea, edema, light headedness, other Gastrointestinal: reports: abdominal pain (earlier - improved). denies: nausea , vomiting, diarrhea, constipation, melena, hematochezia, other - Medication Medications: Active Medications Generic Name Dose Route Start Last Admin Trade Name Freq PRN Reason Stop Dose Admin Acetaminophen/Codeine Phosphate 1 tab 10/05/19 08:05 10/06/19 17:21 Tylenol #3 PO 1 tab Q6H PRN Administration Moderate Pain (4-6) Acyclovir 200 mg 10/04/19 21:00 10/07/19 08:35 Zovirax PO 10/11/19 21:01 200 mg BID [facility] Administration Diltiazem HCl 180 mg 10/03/19 21:00 10/06/19 20:15 Cardizem Cd PO 180 mg HS [facility] Administration Ezetimibe 10 mg 10/03/19 21:00 10/06/19 20:15 Zetia PO 10 mg HS [facility] Administration Fluticasone Propionate 0 gm 10/03/19 21:00 10/07/19 08:38 Flonase Nasal [place] NASAL 2 spr BID [facility] Administration Furosemide 20 mg 10/05/19 09:00 10/07/19 08:37 Lasix PO 20 mg DAILY [facility] Administration Heparin Sodium/Dextrose 500 mls @ 0 mls/hr 10/04/19 09:15 10/06/19 20:47 Heparin 25,000 Units/D5w IVPB 500 mls INF [facility] Administration Protocol Per Protocol Montelukast Sodium 10 mg 10/03/19 21:00 10/06/19 20:15 Singulair PO 10 mg HS [facility] Administration Pantoprazole Sodium 40 mg 10/05/19 09:00 10/07/19 08:36 Protonix PO 40 mg DAILY [facility] Administration Polyethylene Glycol 17 gm 10/05/19 09:00 10/07/19 08:38 Miralax PO 17 gm DAILY [facility] Administration Prednisone 2.5 mg 10/04/19 09:00 10/07/19 08:35 Prednisone PO 2.5 mg QAM [facility] Administration Rosuvastatin Calcium 20 mg 10/03/19 21:00 10/06/19 20:15 Crestor PO 20 mg HS [facility] Administration Senna/Docusate Sodium 2 tab 10/04/19 21:00 10/07/19 08:39 Senokot S PO Not Given BID [facility] Sodium Chloride 10 ml 10/04/19 21:00 10/07/19 08:39 Flush - Normal Saline IVF Not Given Q12HR [facility] Tamsulosin HCl 0.4 mg 10/03/19 21:00 10/06/19 20:15 Flomax PO 0.4 mg HS [facility] Administration - Exam General Appearance: awake alert ENT: normocephalic atraumatic Heart: RRR, no murmur, no gallops, no rubs, normal peripheral pulses Respiratory: CTAB, no wheezes, no rales, no ronchi, normal chest expansion, no tachypnea, normal percussion Gastrointestinal: soft, non-tender, non-distended, normal bowel sounds, no palpable masses, no hepatomegaly, no splenomegaly, no bruit, no guarding, no rigidity, tender to palpation (mininal in lower quad) Psychiatric: normal affect, A&O x 3 Hosp A/P - Plan DVT proph w/lovenox RLE DVT -on Heparin drip -Started on Warfarin HTN Par Afib - Xarelto was dced prior to surgery GERD Recent back surgery Mild int Asthma Constipation PLAN: 10/06 INR 1.7 today Received total 15 mg Warfarin Hold Warfarin Recheck INR later today DC Heparin drip if INR therapeutic DC planning Await outpt Warfarin clinic setup 10/05 INR 1.2 Cont Warfarin with Heparin drip PTT monitoring per protocol Cont PT Cont other meds as above Monitor INR daily 10/04 Cont Heparin drip Monitor PTT/PT/INR Cont Warfarin Reduce Lasix dose Cont low Vit K diet Cont Cardizem PT/OT with back brace Warfarin clinic to follow at dc AM labs
[2019-10-07 16:24] LABS: INR-International Normal Ratio 2.2; Prothrombin Time 24.4 sec (12.0-14.7)
[2019-10-07] MEDS ORDERED: Warfarin Sodium 7.5 MG TAB PO SCH (17:00)
[2019-10-07] MEDS: Tamsulosin HCl 0.4 MG CAP PO SCH (20:39)
[2019-10-07] MEDS: Montelukast Sodium 10 mg Tablet PO SCH (20:39)
[2019-10-07] MEDS: Rosuvastatin 20 MG TAB PO SCH (20:39)
[2019-10-07] MEDS: Ezetimibe 10 MG TAB PO SCH (20:39)
[2019-10-07] MEDS: Acetaminophen/Codeine 30-300mg Tablet PO PRN (20:40)
[2019-10-08 07:33] VITALS: BP 144/85; TEMP 98.1
[2019-10-08] MEDS: Acyclovir 200 mg Capsule PO SCH (08:21)
[2019-10-08] MEDS: predniSONE 5 MG TAB PO SCH (08:21)
[2019-10-08] MEDS: Furosemide 20 MG TAB PO SCH (08:21)
[2019-10-08] MEDS: Polyethylene Glycol 3350 17 GM Packet PO SCH (08:21)
[2019-10-08] MEDS: Senokot S 8.6-50 MG TAB PO SCH (08:22)
[2019-10-08] MEDS: Fluticasone Propionate Nasal Spray 16 gm Bottle NASAL SCH (08:22)
[2019-10-08 09:34] LABS: INR-International Normal Ratio 2.4
--- NOTE | 2019-10-08 13:06 | DIS ---
DATE OF ADMISSION: 10/03/2019 DATE OF DISCHARGE: 10/08/2019 DISCHARGE DISPOSITION: Home. FOLLOWUP: 1. Follow up with primary care physician, Dr. Bowman in 1 week. 2. Follow up with Coumadin Clinic on Monday at 10:40 a.m. CONDITION ON DISCHARGE: The patient was seen and examined on the day of discharge. Denies any new complaints. No new fever, chills, or back pain reported. SIGNIFICANT LABORATORY DATA: INR on the day of discharge was 2.4. INR yesterday was 2.2. DISCHARGE MEDICATION: Warfarin 2 mg daily. All other home medications were left unchanged. BRIEF HOSPITAL COURSE: The patient is a 73-year-old male with recent back surgery, presented to Dr. Anderson' office with right lower extremity pain. He was found to have right lower extremity DVT. He was admitted to the hospital for anticoagulation with warfarin. He was started on IV heparin drip per protocol. Newer anticoagulants were avoided per Neurosurgery recommendation. His INR has been stable since yesterday. I discussed with Coumadin Clinic, who will follow up the patient as outpatient. He will be discharged home with 2 mg warfarin daily. He was counseled on dietary modification for warfarin. He appears stable for discharge. FINAL DIAGNOSES: 1. Right lower extremity deep venous thrombosis. 2. Hypertension. 3. Paroxysmal atrial fibrillation. Xarelto was discontinued prior to back surgery. 4. Gastroesophageal reflux disease. 5. Recent back surgery. 6. Mild intermittent asthma. 7. Constipation. Job ID: [id number]
--- NOTE | 2019-10-09 15:25 | EKG ---
Test Reason : ROUTINE Blood Pressure : / mmHG Vent. Rate : 109 BPM Atrial Rate : 110 BPM P-R Int : 000 ms QRS Dur : 070 ms QT Int : 338 ms P-R-T Axes : 041 041 029 degrees QTc Int : 455 ms Sinus tachycardia with Premature atrial complexes with Abberant conduction Otherwise normal ECG No previous ECGs available Confirmed by NIKI GONZALEZ M.D. ([id number]) on 10/09/2019 3:24:52 PM Referred By: VAZQUEZ WILDER Confirmed By:NIKI GONZALEZ M.D.
--- NOTE | 2019-10-10 08:13 | PQF ---
CLINICAL DOCUMENTATION CLARIFICATION FORM: Dear : Doc Mae Date / Time: 10/10/19811 Please exercise your independent, professional judgment in responding to the clarification form. Clinical indicators are provided on the bottom of this form for your review Please check appropriate box(es): [ ] Right LE DVT is a postoperative complication of back surgery [ ] Right LE DVT is not a postoperative complication of back surgery [ ] Other diagnosis [ x ] Unable to determine Physician Signature: Date/Time: For continuity of documentation, please document condition throughout progress notes and discharge summary. Thank You To be completed by CDI/Coding staff for physician review: Present Clinical Indicators - Signs / Symptoms / Labs Results and Location in Medical Record [X] PT 13.8, INT 1.1, APTT 33.2; 30.8; 71.9; 81.8 Laboratory Coagulation 10/03 [X] Complaints of right left pain H&P p1 10/02 [facility] PA-C [X] Dr Griffin to decide if ok to start coumadin, given recent spinal surgery H&P p3 10/02 [facility] PA-C [X] Pt had recent back sugery on 09/19, tia remain in place H&P p3 10/02 [facility] PA-C [X] now 2 weeks our from his lumbar spine operation. He has a DVT Pn p1 10/03 Dr Teixeira Present Risk Factors Results and Location in Medical Record [X] 73 year-old Male H&P p1 10/02 [facility] PA-C [X] Afib H&P p1 10/02 [facility] PA-C [X] HTN H&P p1 10/02 [facility] PA-C [X] Hx back surgery on 09/19 H&P p1 10/02 [facility] PA-C Present Treatments Results and Location in Medical Record [X] Lovenox 80 mg SC MAY 17 [X] Coumadin 5 mg otal MAY 17 [X] IV Heparin 25,000 units/D5w MAY 17 [X] Tylenol 650 mg oral MAY 17 [X] [place] 5/325 1 tab oral MAY 17 [X] Neurosurgery Consult Consult 10/03 CDS/Mail Officer Signature: Mackenzie Mckeonara Phone #: ext [phone] Date/Time: 10/10/19811 This is a permanent part of the Medical Record [facility]
== END 2019-10-08 14:18 | disposition home or self-care (01) | DRG 301 ==
LOC: 2NO 16:57 → T4-A 17:05
PROVIDERS: ADMIT Internal Medicine; ATTEND Internal Medicine
DX: I82.401 Acute embolism and thrombosis of unspecified deep veins of right lower extremity (principal); I10 Essential (primary) hypertension; I48.0 Paroxysmal atrial fibrillation; K21.9 Gastro-esophageal reflux disease without esophagitis; J45.20 Mild intermittent asthma, uncomplicated; K59.00 Constipation, unspecified; E78.5 Hyperlipidemia, unspecified; Z96.659 Presence of unspecified artificial knee joint; Z11.59 Encounter for screening for other viral diseases; Z79.899 Other long term (current) drug therapy; Z79.51 Long term (current) use of inhaled steroids; Z79.52 Long term (current) use of systemic steroids
CPT/HCPCS: 36415; 80048; 80053; 83735; 85014; 85018; 85025; 85049; 85610; 85730; 87635; 93005; 93010; J1644; J1650; J7512; U0003

== ENCOUNTER 2019-11-20 08:41 | Outpatient (CLI) | payer MEDICARE ==
--- NOTE | 2019-11-20 09:00 | RAD ---
LUMBAR SPINE 2 VIEWS: Date: 11/20/2019 HISTORY: Lumbar spondylolisthesis. FINDINGS: Postoperative changes are noted. Pedicle screws are seen at the L2, L3, and L4 levels with interbody implants at both of these levels. Vertebral bodies maintain height and alignment, and posterior align ment is preserved. Moderate spurring from the lumbar vertebra. Post laminectomy changes at the L2-3 a nd L3-4 levels. Facet hypertrophy at L4-5 and L5-S1. Loss of disc space at L4-5 and L5-S1. Mild scoliotic curvature of the thoracic and lumbar spine is seen in the AP projection. IMPRESSION: Postoperative and degenerative changes of lumbar spine as described. POS: [facility]
== END 2019-11-20 08:42 | disposition home or self-care (01) ==
LOC: BICRAD 08:41
PROVIDERS: ATTEND Neurological Surgery
DX: M43.16 Spondylolisthesis, lumbar region (principal); M47.816 Spondylosis without myelopathy or radiculopathy, lumbar region; Z98.890 Other specified postprocedural states
CPT/HCPCS: 72100

== ENCOUNTER 2020-02-25 10:16 | Outpatient (CLI) | payer MEDICARE ==
[~2020-02-25 10:16] MED LIST: Magnevist 469MG/ML 20 ML VIAL ONE
--- NOTE | 2020-02-25 11:48 | MRI ---
BRAIN MRI WITH AND WITHOUT CONTRAST: Date: 02/25/2020 COMPARISON: None. 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 TECHNIQUE: Multiplanar, multisequence MR imaging of the brain is provided with and without contrast. FINDINGS: The diffusion-weighted imaging demonstrates no evidence for acute infarction. The axial FLAIR imaging demonstrates scattered foci of increased signal intensity within the deep, subcortical, and perivent ricular white matter, evidence of small vessel disease. There is associated diffuse cerebral volume loss. Regional bone marrow signal intensity appears grossly unremarkable on the sagittal T1-weighted imagin g. There is degenerative change at the atlantoaxial interspace. This examination was performed utilizing an orbits protocol. Coronal fat saturated T2-weighted imagin g is obtained through the orbits. The optic nerves demonstrate a normal T2 appearance. The extraocula r muscles appear grossly unremarkable bilaterally. The patient appears status post bilateral paranasal sinus surgery, not optimally assessed on MRI. The re is mild mucosal thickening involving the maxillary sinuses, frontal sinuses, and ethmoid air cells . Postcontrast fat saturated coronal imaging through the orbits demonstrates no abnormal enhancement in volving the extraocular muscles or the optic nerves. The orbits/globes demonstrate a symmetric appearance. No evidence for exophthalmos is appreciated on this examination. No intraconal or extraconal fat stranding. Whole brain postcontrast imaging demonstrates no abnormal enhancement within the brain parenchyma. IMPRESSION: Incidental findings as detailed above. No acute findings are seen. POS: [facility]
== END 2020-02-25 10:17 | disposition home or self-care (01) ==
LOC: BICMRI 10:16
PROVIDERS: ATTEND Ophthalmology
DX: H05.112 Granuloma of left orbit (principal)
CPT/HCPCS: 70553; 82565; A9579

== ENCOUNTER 2020-03-18 08:11 | Outpatient (CLI) | payer MEDICARE ==
--- NOTE | 2020-03-18 09:44 | RAD ---
LUMBAR SPINE SERIES 4 VIEWS: HISTORY: Low back pain. History of surgery. FINDINGS: Scoliotic change convex to the left is noted. Bilateral pedicle screws are seen at the L2, L3, and L 4 levels. Markers of the disk implants are within the intervening disk levels. Vascular calcificati ons are noted. Degenerative disk narrowing at L5-S1. IMPRESSION: Scoliosis, arthritic changes, and postop changes of the spine. POS: [facility]
== END 2020-03-18 08:12 | disposition home or self-care (01) ==
LOC: BICRAD 08:11
PROVIDERS: ATTEND Neurological Surgery
DX: M54.5 Low back pain (principal); M47.816 Spondylosis without myelopathy or radiculopathy, lumbar region; M41.9 Scoliosis, unspecified; Z98.890 Other specified postprocedural states
CPT/HCPCS: 72110

== ENCOUNTER 2020-04-02 08:40 | Outpatient (CLI) | payer MEDICARE ==
--- NOTE | 2020-04-02 12:06 | MRI ---
LUMBAR SPINE MRI WITH AND WITHOUT CONTRAST: HISTORY: Low back pain. Numbness and tingling in bilateral lower extremities. Surgery in September 2019. FINDINGS: There are bilateral transpedicular screws at L2, L3 and L4. Associated metallic susceptibility artifa ct. There is no significant STIR hyperintensity to suggest vertebral body edema or ligamentous injury. Lumbar spine vertebral body heights are maintained. No fracture. Overall there is appropriate T1 marrow signal intensity of the lumbar vertebrae. Postcontrast images do not demonstrate any abnormal enhancement of the vertebral body. There is no abnormal enhancement within the thecal sac in cluding the cauda equina and conus medullaris. There is some clumping of the nerve roots within the thecal sac without definite thickening or enhancement. 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 There are type II Modic changes at L2-L3 and L3-L4.. Appropriate signal intensity of the visualized paraspinal muscles and solid organs. Conus medullaris terminates at the inferior aspect of L1. T12-L1: Minimal disc desiccation without significant loss of disc space height. No significant centra l canal stenosis. Mild right and left neural foraminal narrowing. L1-L2: Adequate disc hydration. Mild loss of disc space height. Left and right paracentral disc bulge s minimally contact the ventral thecal sac. Disc material abuts but does not obscure either traversing L2 nerve root. Mild to moderate bilateral neural foraminal narrowing L2-L3: Disc prosthesis. Posterior laminectomy defect. No significant central canal stenosis. Moderate bilateral neural foraminal narrowing. Metallic susceptibility artifact limits evaluation. L3-L4: Disc prosthesis. Posterior laminectomy defect. No significant central canal stenosis. Mild to moderate bilateral neural foraminal narrowing. Metallic susceptibly artifact limits evaluation. L4-L5: Minimal disc desiccation with mild loss of disc space height. There is a broad-based disc bulg e, ligament flavum thickening and facet hypertrophy. Mild to moderate central canal stenosis. Partial obscuration of the traversing left L5 nerve root secondary to disc material. There is a midli ne annular fissure. Moderate bilateral neural foraminal narrowing. There is fluid in bilateral facet joints. L5-S1: Disc desiccation with mild loss of disc space height. Broad-based disc bulge abuts the thecal sac. There is contact upon both traversing S1 nerve roots without significant obscuration. No significant central canal stenosis. Moderate right and moderate to severe left neural foraminal narro wing. There is a small fluid signal intensity posterior to the left facet at L3, measuring 1.9 x 0.3 cm. Th ere is peripheral enhancement. Differential considerations include a postoperative fluid collection versus an infected fluid collection versus a contained CSF leak. IMPRESSION: 1. Lumbar fusion from L2 through L4 as described above. Type II Modic changes at L2-L3 and L3-L4. The re are associated disc prostheses. 2. Multilevel degenerative changes of the lumbar spine as detailed above. There are varying degrees o f central canal stenosis and neural foraminal narrowing. 3. Nonspecific fluid signal intensity in the posterior left paraspinal soft tissues at the L3-L4 leve l. Correlate for possible postoperative fluid collection versus infected fluid collection versus a small contained CSF leak. 4. Clumping of nerve roots without definite thickening or enhancement. Correlate for previous arachno iditis. Findings conveyed to Dr. Puneet Navarro 04/02/2020 at 12:05 PM Code CR Transcribed Date/Time: 04/02/2020 12:14 PM
[2020-04-02] MEDS ORDERED: Magnevist 469MG/ML 20 ML VIAL ONE (14:47)
== END 2020-04-02 08:41 | disposition home or self-care (01) ==
LOC: BICMRI 08:40
PROVIDERS: ATTEND Neurological Surgery
DX: M43.06 Spondylolysis, lumbar region (principal); M47.816 Spondylosis without myelopathy or radiculopathy, lumbar region; M48.061 Spinal stenosis, lumbar region without neurogenic claudication; R93.7 Abnormal findings on diagnostic imaging of other parts of musculoskeletal system
CPT/HCPCS: 72158; 82565; A9579

== ENCOUNTER 2020-05-11 12:29 | Outpatient (CLI) | payer MEDICARE ==
[2020-05-12 01:55] LABS: SARS-CoV-2 PCR by NAA Not Detected (NotDetected)
== END 2020-05-11 12:30 | disposition home or self-care (01) ==
LOC: LABBT 12:29
PROVIDERS: ATTEND Otolaryngology
DX: R13.10 Dysphagia, unspecified (principal); Z20.822 Contact with and (suspected) exposure to COVID-19
CPT/HCPCS: U0003; U0005; 87635

== ENCOUNTER 2020-05-15 12:36 | Outpatient (CLI) | payer MEDICARE | END 2020-05-15 12:37 | disposition home or self-care (01) | LOC: RAD 12:36 | PROVIDERS: ATTEND Otolaryngology | DX: I69.891 Dysphagia following other cerebrovascular disease (principal); R13.12 Dysphagia, oropharyngeal phase; K22.5 Diverticulum of esophagus, acquired; K44.9 Diaphragmatic hernia without obstruction or gangrene | CPT/HCPCS: 74220; 74230 ==

== ENCOUNTER 2020-08-17 11:36 | Outpatient (CLI) | payer MEDICARE | END 2020-08-17 11:37 | disposition home or self-care (01) | LOC: BICRAD 11:36 | PROVIDERS: ATTEND Neurological Surgery | DX: M54.5 Low back pain (principal); M47.816 Spondylosis without myelopathy or radiculopathy, lumbar region; Z98.890 Other specified postprocedural states | CPT/HCPCS: 72100 ==

== ENCOUNTER 2021-11-08 12:03 | Outpatient (CLI) | payer MEDICARE | END 2021-11-08 12:04 | disposition home or self-care (01) | LOC: LABBT 12:03 | PROVIDERS: ATTEND Otolaryngology Plastic Surgery within the Head & Neck | DX: K22.5 Diverticulum of esophagus, acquired (principal); Z20.822 Contact with and (suspected) exposure to COVID-19 | CPT/HCPCS: 87811 ==

== ENCOUNTER 2021-11-12 10:10 | Outpatient (CLI) | payer MEDICARE | END 2021-11-12 10:11 | disposition home or self-care (01) | LOC: RAD 10:10 | PROVIDERS: ATTEND Otolaryngology Plastic Surgery within the Head & Neck | DX: K22.5 Diverticulum of esophagus, acquired (principal) | CPT/HCPCS: 74220 ==

== ENCOUNTER 2022-01-14 13:49 | Outpatient (CLI) | payer MEDICARE ==
[2022-01-14 16:13] LABS: Mean Corpuscular HGB CONC 34.3 g/dL (32.0-36.0); Mean Corpuscular Hemoglobin 31.4 pg (27.0-33.0); Mean Corpuscular Volume 91.4 fl (81.2-95.1); Mean Platelet Volume 10.4 fl (7.4-10.4); Platelet Count 162 10x3/uL (150-450); RBC Distribution Width 13.7 % (11.5-14.5); Red Blood Cell (RBC) Count 4.78 10x6/uL (4.32-5.72); White Blood Cell (WBC) Count 6.9 10x3/uL (3.5-10.5)
[2022-01-14 16:18] LABS: Anion Gap 14 mmol/L (10-20); BUN (Urea Nitrogen) 16 mg/dL (8.4-25.7); Calc. Creatinine Clearance 0 mL/min (70-130); Carbon Dioxide 27 mmol/L (23-31); Chloride 106 mmol/L (98-107); Estimated GFR 86; Glucose 99 mg/dL (83-110); Potassium 4.1 mmol/L (3.5-5.1); Sodium 143 mmol/L (136-145)
== END 2022-01-14 13:50 | disposition home or self-care (01) ==
LOC: LABBT 13:49
PROVIDERS: ATTEND Otolaryngology Plastic Surgery within the Head & Neck
DX: Z01.818 Encounter for other preprocedural examination (principal); K22.5 Diverticulum of esophagus, acquired; R13.10 Dysphagia, unspecified; R09.89 Other specified symptoms and signs involving the circulatory and respiratory systems
CPT/HCPCS: 80048; 85027; 93005; 93010

== ENCOUNTER 2022-01-19 08:46 | Day surgery (SDC) | payer MEDICARE ==
[2022-01-19 03:08] VITALS: BMI 25.8
[2022-01-19] MEDS ORDERED: Lidocaine 1% MPF 2 ML VIAL ONE (09:40)
[2022-01-19] MEDS ORDERED: Lidocaine 1% (PF) 30 ML VIAL ONE (10:36)
[2022-01-19] MEDS ORDERED: EPINEPHrine 1 MG/ML AMP ONE ×2 (10:36→10:45)
[2022-01-19] MEDS ORDERED: fentaNYL PF 100 MCG/2 ML SYRINGE ONE (10:41)
[2022-01-19] MEDS ORDERED: Dexamethasone 20 MG/5 ML VIAL ONE (11:10)
[2022-01-19] MEDS ORDERED: Rocuronium Bromide 10 MG/ML (10ML VIAL) ONE (11:10)
[2022-01-19] MEDS ORDERED: Ondansetron PF 4 MG/2 ML Vial ONE (11:10)
[2022-01-19] MEDS ORDERED: Glycopyrrolate 0.2 MG/ML 5 ML SYRINGE ONE (11:10)
[2022-01-19] MEDS ORDERED: NEOSTIGMINE 3 MG/3 ML SYR 3 MG/3 ML SYRINGE ONE (11:10)
[2022-01-19] MEDS ORDERED: PROPOFOL 200 MG/20 ML VIAL ONE (11:10)
[2022-01-19] MEDS ORDERED: Promethazine HCl 25 MG/ML VIAL IM PRN (12:11)
[2022-01-19] MEDS ORDERED: Ondansetron HCl/PF 4 MG/2 ML Vial IVP PRN (12:11)
[2022-01-19] MEDS ORDERED: Promethazine HCl 25 MG/ML VIAL IVPB PRN (12:11)
== END 2022-01-19 14:36 | disposition home or self-care (01) ==
LOC: SDC 08:46
PROVIDERS: ATTEND Otolaryngology Plastic Surgery within the Head & Neck
PROC: 0DJ08ZZ Inspection of Upper Intestinal Tract, Via Natural or Artificial Opening Endoscopic (ICD-10-PCS; principal; 2022-01-19)
DX: K22.5 Diverticulum of esophagus, acquired (principal); I10 Essential (primary) hypertension; M19.90 Unspecified osteoarthritis, unspecified site; G89.29 Other chronic pain; M54.9 Dorsalgia, unspecified; E78.00 Pure hypercholesterolemia, unspecified; K21.9 Gastro-esophageal reflux disease without esophagitis; J45.909 Unspecified asthma, uncomplicated; I48.91 Unspecified atrial fibrillation; M10.9 Gout, unspecified; Z87.891 Personal history of nicotine dependence; Z79.01 Long term (current) use of anticoagulants; Z79.899 Other long term (current) drug therapy
CPT/HCPCS: J0171; J1100; J2001; J2405; J2704

== ENCOUNTER 2022-08-31 09:08 | Outpatient (CLI) | payer MEDICARE | END 2022-08-31 09:09 | disposition home or self-care (01) | LOC: BICRAD 09:08 | PROVIDERS: ATTEND Neurological Surgery | DX: M54.16 Radiculopathy, lumbar region (principal) | CPT/HCPCS: 72120 ==

== ENCOUNTER 2023-02-13 13:59 | Outpatient (CLI) | payer MEDICARE | END 2023-02-13 14:00 | disposition home or self-care (01) | LOC: BICRAD 13:59 | PROVIDERS: ATTEND Neurological Surgery | DX: M47.26 Other spondylosis with radiculopathy, lumbar region (principal); M47.817 Spondylosis without myelopathy or radiculopathy, lumbosacral region; M43.06 Spondylolysis, lumbar region; Z98.890 Other specified postprocedural states | CPT/HCPCS: 72120 ==

== ENCOUNTER 2023-02-28 09:39 | Outpatient (CLI) | payer MEDICARE | END 2023-02-28 09:40 | disposition home or self-care (01) | LOC: BICRAD 09:39 | PROVIDERS: ATTEND Family Medicine | DX: J16.8 Pneumonia due to other specified infectious organisms (principal); J98.4 Other disorders of lung | CPT/HCPCS: 71046 ==

== ENCOUNTER 2023-04-17 14:26 | Outpatient (CLI) | payer MEDICARE | END 2023-04-17 14:27 | disposition home or self-care (01) | LOC: BICRAD 14:26 | PROVIDERS: ATTEND Family Medicine | DX: S16.1XXA Strain of muscle, fascia and tendon at neck level, initial encounter (principal); S30.0XXA Contusion of lower back and pelvis, initial encounter; M25.531 Pain in right wrist; M47.812 Spondylosis without myelopathy or radiculopathy, cervical region; M47.816 Spondylosis without myelopathy or radiculopathy, lumbar region; Z98.1 Arthrodesis status | CPT/HCPCS: 72040; 72100 ==

== ENCOUNTER 2024-03-11 15:03 | Outpatient (CLI) | payer MEDICARE | END 2024-03-11 15:04 | disposition home or self-care (01) | LOC: BICRAD 15:03 | PROVIDERS: ATTEND Nurse Practitioner Family | DX: J06.9 Acute upper respiratory infection, unspecified (principal) | CPT/HCPCS: 71046 ==